=== PATIENT | male | born 1965 | race Caucasian/White ===

== ENCOUNTER 2018-03-17 10:41 | Emergency (ER) | payer MEDICARE, OTHER ==
[~2018-03-17] VITALS: Ht 177.8 cm; Wt 99.8 kg
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
--- OUTSIDE RECORDS SUMMARY | 2018-03-17 10:48 | XMS REPORT | Referral Summary ---
Author Author [facility] Organization [facility] Address Unknown Phone Unavailable Care Team Providers Care Risk Officer Name Role Phone Danish Aguilera PCP Encounter [facility] Date(s): 11/20/15 - 11/20/15 [facility] [address] [place] [address] Discharge Diagnosis: Left flank pain Discharge Diagnosis: MRSA infection Discharge Diagnosis: Lung nodule Discharge Disposition: 01-Home or Self Care Attending Physician: Danish Aguilera MD Admitting Physician: Danish Aguilera MD Vital Signs Most recent to 1 oldest [Reference Range]: Temperature Oral 36.7 degC [35.8-37.3 degC] (11/20/15 2:18 PM) Peripheral Pulse 92 bpm Rate [60-100 bpm] (11/20/15 2:18 PM) Blood Pressure 142/92 mmHg [90-140/60-90 mmHg] *HI* (11/20/15 2:18 PM) Problem List Condition Effective Dates Status [...] Care 5Abscess from Arm collected 11/03/15 11:18:00 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 6Wound, Superficial from Knee L collected 08/06/14 17:01:00 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 PREPARER Allergies, Adverse Reactions, Alerts Substance Reaction Severity Status Bactrim Rash Active fentaNYL1, 2 GI upset Active n/v Lipitor SORE JOINTS Active methadone Adverse Reaction Active GI upset 1ALLERGY ONLY TO FENTANYL PATCH 2fentanyl patches Medications Ambien 10 mg oral tablet 10 mg 1 tabs, Oral, Bedtime (once a day), as needed for sleep, # 30 tabs, 0 Refill(s) Start Date: 10/17/15 Stop Date: 11/16/15 Status: Ordered Ambien 10 mg oral tablet 1 tabs, Oral, Bedtime (once a day), as needed for sleep, # 30 tabs, 5 Refill(s) Start Date: 01/20/15 Stop Date: 07/19/15 Status: Ordered Chantix Starter Pack 0.5 mg-1 mg oral tablet 1 tabs, Oral, BID, as directed on package labeling, # 53 tabs, 0 Refill(s), Pharmacy: [facility] #[id number] Start Date: 03/24/15 Status: Ordered Chantix Starter Pack 0.5 mg-1 mg oral tablet 1 tabs, Oral, BID, as directed on package labeling, # 53 tabs, 0 Refill(s), Pharmacy: [facility] #[id number] Start Date: 06/13/15 Status: Ordered DULoxetine 60 mg oral delayed release capsule See Instructions, TAKE ONE CAPSULE BY MOUTH DAILY (DO NOT CRUSH OR CHEW) due for appt,pleae call to schedule, # 30 caps, 0 Refill(s), Pharmacy: [facility] #[id number], TAKE ONE CAPSULE BY MOUTH DAILY (DO NOT CRUSH OR CHEW); due for appt,pleae... Start Date: 11/11/15 Status: Ordered lisinopril 20 mg oral tablet mg tabs, Oral, Daily, 0 Refill(s) Start Date: 05/26/15 Status: Ordered One Touch Delica Lancets One Touch Delica Lancets, See Instructions, Use as directed to test blood sugar QD. Dx: 250.00, # 100 Each, 2 Refill(s), Pharmacy: [facility] #[id number], Use as directed to test blood sugar QD. Dx: 250.00 Start Date: 03/24/15 Status: Ordered One Touch Ultra 2 Meter One Touch Ultra 2 Meter, See Instructions, Use as directed to test blood sugar daily. Dx: 250.00, # 1 Each, 0 Refill(s), Pharmacy: [facility] #[id number], Use as directed to test blood sugar daily. Dx: 250.00 Start Date: 03/24/15 Status: Ordered One Touch Ultra Test Strips One Touch Ultra Test Strips, See Instructions, Use as directed to test blood sugar QD. Dx: 250.00, # 100 Each, 3 Refill(s), Pharmacy: [facility] # [id number], Use as directed to test blood sugar QD. Dx: 250.00 Start Date: 03/24/15 Status: Ordered Ultram 50 mg oral tablet 50 mg 1 tabs, Oral, q12hr, as needed for pain, # 30 tabs, 0 Refill(s), called to pharmacy (Rx) Start Date: 06/11/15 Stop Date: 06/11/16 Status: Ordered Results Chemistry Most recent to 1 oldest [Reference Range]: Sodium Lvl [135-144 139 mEq/L mEq/L] (11/20/15 2:41 PM) Potassium Lvl 4.3 mEq/L [3.5-5.2 mEq/L] (11/20/15 2:41 PM) Chloride [99-111 105 mEq/L mEq/L] (11/20/15 2:41 PM) CO2 [23-31 mEq/L] 28 mEq/L (11/20/15 2:41 PM) AGAP [3-20] 6 (11/20/15 2:41 PM) BUN [8-26 mg/dL] 6 mg/dL *LOW* (11/20/15 2:41 PM) Glucose Lvl [70-99 105 mg/dL mg/dL] *HI* (11/20/15 2:41 PM) Creatinine Lvl 0.92 mg/dL [0.72-1.25 mg/dL] (11/20/15 2:41 PM) eGFR [>60 mL/min] >60 mL/min 1 (11/20/15 2:41 PM) Calcium Lvl 9.6 mg/dL [8.9-10.5 mg/dL] (11/20/15 2:41 PM) 1Result Comment: Multiply eGFR results by 1.21 for race. Urinalysis Most recent to 1 oldest [Reference Range]: UA Color Yellow (11/20/15 2:40 PM) UA Appear Clear (11/20/15 2:40 PM) UA pH [5.0-8.0] 5.5 (11/20/15 2:40 PM) UA Leuk Est Negative [Negative] (11/20/15 2:40 PM) UA Nitrite Negative [Negative] (11/20/15 2:40 PM) UA Protein Negative [Negative] (11/20/15 2:40 PM) UA Glucose Negative [Negative] (11/20/15 2:40 PM) UA Ketones Negative [Negative] (11/20/15 2:40 PM) UA Urobilinogen 0.2 mg/dL [<=1.0 mg/dL] (11/20/15 2:40 PM) UA Bili [Negative] Negative (11/20/15 2:40 PM) UA Blood [Negative] Negative (11/20/15 2:40 PM) UA Spec Grav >=1.030 [1.003-1.030] (11/20/15 2:40 PM) Type Cl Catch (11/20/15 2:40 PM) Immunizations Vaccine Date Refusal Reason influenza virus vaccine, inactivated 09/05/14 Procedures Procedure [...] Burton C5/6 and C6/7 ACDF CPT Codes: 36507; 71481; 00335; 65852; 32653 ICD-9 Codes: 723.0; 723.1; 723.4 PO03/02/2015 2auto-populated from documented surgical case 3auto-populated from documented surgical case 4Left knee [place] [address] unicompartmental total knee medial side. 38144 Global end date 10-20-14 5LEFT 6LEFT KNEE X 2 SURG Social History Social History Type Response Smoking Status Current every day smoker; Tobacco use per day: 1 Pack Assessment and Plan Extracted from: Title: Office Visit Note Author: Danish Aguilera MD Date: 11/20/15 Assessment/Plan 1.Left flank pain this is unlike his typical MSK pain. will check BMP and uA Ordered: Basic Metabolic Panel Urinalysis with Culture if Indicated 2.MRSA infection this iis improved, he is chornic carrier 3.Lung nodule recheck CT in about a year. this is stable.
--- OUTSIDE RECORDS SUMMARY | 2018-03-17 10:48 | XMS REPORT | Referral Summary ---
Author Author [facility] Organization [facility] Address Unknown Phone Unavailable Care Team Providers Care Starting Gate Driver Name Role Phone Danish Aguilera PCP Encounter [facility] [id number] Date(s): 11/03/15 - 11/03/15 [facility] [address] [place] [address] [facility] Discharge Diagnosis: Skin abscess Discharge Disposition: 01-Home or Self Care Attending Physician: Provider, Immediate Care Attending Physician: Stuart Angel APRN Admitting Physician: Provider, Immediate Care Vital Signs Most recent to 1 oldest [Reference Range]: Temperature Oral 36.7 degC [35.8-37.3 degC] (11/03/15 8:48 AM) Peripheral Pulse 78 bpm Rate [60-100 bpm] (11/03/15 8:48 AM) Respiratory Rate 18 br/min [14-20 br/min] (11/03/15 8:48 AM) Blood Pressure 130/85 mmHg [90-140/60-90 mmHg] (11/03/15 8:48 AM) SpO2 95 % (11/03/15 8:48 AM) Problem List Condition Effective Dates Status Health [...] of left knee(Confirmed) Methicillin Active resistant Staphylococcus aureus(Confirmed)5 Migraines(Confirmed) Active Cervicalgia(Confirme Active d) Cervicalgia(Confirme Active d) cervical Active Radiculopathy(Confir med) KNEE JOINT REPLACED Active BY OTHER MEANS(Confirmed) Right hand middle Resolved finger(Confirmed) Sciatica Active (disorder)(Confirmed ) Sciatica(Confirmed) Active skin Resolved conditions(Confirmed ) spinal headache Resolved after lumbar surgery(Confirmed) cervical Spinal Active stenosis(Confirmed) Cervical stenosis of Active spine(Confirmed) Spinal stenosis in Active cervical region (disorder)(Confirmed ) Tobacco Active patient user(Confirmed) Type 2 diabetes [...] initiation of Knowledge Deficit Plan of Care 5Wound, Superficial from Knee L collected 08/06/14 17:01:00 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 Allergies, Adverse Reactions, Alerts Substance Reaction Severity [...] # 53 tabs, 0 Refill(s), Pharmacy: [facility] #[id number] Start Date: 03/24/15 Status: Ordered Chantix Starter Pack 0.5 mg-1 mg oral tablet 1 tabs, Oral, BID, as directed on package labeling, # 53 tabs, 0 Refill(s), Pharmacy: [facility] #[id number] Start Date: 06/13/15 Status: Ordered Cipro 500 mg oral tablet 500 mg 1 tabs, Oral, q12hr, X 7 days, # 14 tabs, 0 Refill(s), Pharmacy: [facility] #[id number], 1 tabs Oral q12hr,x7 days Start Date: 11/03/15 Stop Date: 11/10/15 Status: Ordered DULoxetine 60 mg oral delayed release capsule See Instructions, TAKE ONE CAPSULE BY MOUTH DAILY (DO NOT CRUSH OR CHEW) Due for follow in October, please call ot schedule, # 30 caps, 0 Refill(s), Pharmacy : [facility] #[id number], TAKE ONE CAPSULE BY MOUTH DAILY (DO NOT CRUSH OR CHEW); Due f... Start Date: 10/13/15 Status: Ordered lisinopril 20 mg oral tablet mg tabs, Oral, Daily, 0 Refill(s) Start Date: 05/26/15 Status: Ordered One Touch Delica Lancets One Touch Delica Lancets, See Instructions, Use as directed to test blood sugar QD. Dx: 250.00, # 100 Each, 2 Refill(s), Pharmacy: [facility] #[id number], Use as directed to test blood sugar QD. Dx: 250.00 Start Date: 03/24/15 Status: Ordered One Touch Ultra 2 Meter One Touch Ultra 2 Meter, See Instructions, Use as directed to test blood sugar daily. Dx: 250.00, # 1 Each, 0 Refill(s), Pharmacy: [facility] #[id number], Use as directed to test blood sugar daily. Dx: 250.00 Start Date: 03/24/15 Status: Ordered One Touch Ultra Test Strips One Touch Ultra Test Strips, See Instructions, Use as directed to test blood sugar QD. Dx: 250.00, # 100 Each, 3 Refill(s), Pharmacy: [facility] # [id number], Use as directed to test blood sugar QD. Dx: 250.00 Start Date: 03/24/15 Status: Ordered Ultram 50 mg oral tablet 50 mg 1 tabs, Oral, q12hr, as needed for pain, # 30 tabs, 0 Refill(s), called to pharmacy (Rx) Start Date: 06/11/15 Stop Date: 06/11/16 Status: Ordered Results No data available for this section Immunizations Vaccine Date Refusal Reason influenza virus [...] Burton C5/6 and C6/7 ACDF CPT Codes: 63320; 31678; 73090; 90960; 59757 ICD-9 Codes: 723.0; 723.1; 723.4 PO03/02/2015 2auto-populated from documented surgical case 3auto-populated from documented surgical case 4Left knee [place] [address] unicompartmental total knee medial side. [id number] Global end date 10-20-14 5LEFT 6LEFT KNEE X 2 SURG Social History Social History Type Response Smoking Status Current every day smoker; Tobacco use per day: 1 Pack Assessment and Plan Extracted from: Title: Office Visit Note Author: Stuart Angel APRN Date: 11/03/15 Assessment/Plan 1.Skin abscess Indication abscess, we cleansed the skin withiodine swabs (3), anesthetizedwith 4mL of 1 percent lidocainewithout epinephrine , technique: [We made a nicking incision in the skin] [ We used an 11-blade to incise the skin contiguous with the abscess cavity] [We advanced a hemostat into the loculated abscess cavity] Yield [ approximately1 mL] of fluid, This substantially decompressed the swelling, placed a clean dressing, The patient tolerated the procedure well, The patient's pain was decreased at the completion of the procedure, The patient was sent home in stable condition, We sent the material for culture, The patient will be on antibiotic medication for 7 more days, We will followup as noted in the Plan and Next Appointment. A sample was procured, will be sent off for culture and sensitivity. Patient has a history of MRSA, will be notified ifmedication needs change. Instructed patient on medication, use, common side effects, and administration. Discussed proper OTC medication, including [Tylenol or ibuprofen ], for symptomatic relief. Instructed patient if symptoms worsen or new symptoms arise to seek medical attention here or at the ER. Instructed patient if symptoms do not improve follow up with PCP in 2-3 days. Patient voiced understanding and agreed with treatment plan. Patient dismissed in stable condition. Ordered: Office Visit Level 3 Est [id number] Orders: ciprofloxacin, 500 mg 1 tabs, Oral, q12hr, X 7 days, # 14 tabs, 0 Refill(s), Pharmacy: [facility] #[id number], 1 tabs Oral q12hr,x7 days
--- OUTSIDE RECORDS SUMMARY | 2018-03-17 10:49 | XMS REPORT | Referral Summary ---
Author Author [facility], [facility] Organization [facility] Address Unknown Phone Unavailable Care Team Providers Care Tool Maintenance Worker Name Role Phone Danish Aguilera PCP Encounter VC Date(s): 06/13/15 - 06/13/15 [facility], [facility] Medicine [address] [place] [id number] Discharge Diagnosis: Smoking Discharge Diagnosis: Depression Discharge Diagnosis: Furuncle Discharge Disposition: 01-Home or Self Care Attending Physician: Danish Aguilera MD Admitting Physician: Danish Aguilera MD Vital Signs Most recent to 1 oldest [Reference Range]: Peripheral Pulse 71 bpm Rate [60-100 bpm] (06/13/15 11:12 AM) Blood Pressure 136/84 mmHg [90-140/60-90 mmHg] (06/13/15 11:12 AM) Problem List Condition Effective Dates Status [...] Care 5Abscess from Arm collected 11/03/15 11:18:00 LEAD CARGOMAN 6Wound, Superficial from Knee L collected 08/06/14 17:01:00 LEAD CARGOMAN Allergies, Adverse Reactions, Alerts Substance Reaction Severity Status Bactrim Rash Active fentaNYL1, 2 GI upset Active n/v Lipitor SORE JOINTS Active methadone Adverse Reaction Active GI upset 1ALLERGY ONLY TO FENTANYL PATCH 2fentanyl patches Medications Ambien 10 mg oral tablet 1 tabs, Oral, Bedtime (once a day), as needed for sleep, # 30 tabs, 5 Refill(s) Start Date: 01/20/15 Stop Date: 07/19/15 Status: Ordered Ambien 10 mg oral tablet 10 mg 1 tabs, Oral, Bedtime (once a day), as needed for sleep, # 30 tabs, 0 Refill(s), called to pharmacy (Rx) Start Date: 11/21/15 Stop Date: 12/21/15 Status: Ordered Chantix Starter Pack 0.5 mg-1 mg oral tablet 1 tabs, Oral, BID, as directed on package labeling, # 53 tabs, 0 Refill(s), Pharmacy: [facility] #[id number] Start Date: 03/24/15 Status: Ordered Chantix Starter Pack 0.5 mg-1 mg oral tablet 1 tabs, Oral, BID, as directed on package labeling, # 53 tabs, 0 Refill(s), Pharmacy: [facility] #[id number] Start Date: 06/13/15 Status: Ordered DULoxetine 60 mg oral delayed release capsule See Instructions, TAKE ONE CAPSULE BY MOUTH DAILY (DO NOT CRUSH OR CHEW), # 30 caps, eRx: [facility] #[id number], TAKE ONE CAPSULE BY MOUTH DAILY (DO NOT CRUSH OR CHEW) Start Date: 12/18/15 Status: Ordered lisinopril 20 mg oral tablet mg tabs, Oral, Daily, 0 Refill(s) Start Date: 05/26/15 Status: Ordered One Touch Delica Lancets One Touch Delica Lancets, See Instructions, Use as directed to test blood sugar QD. Dx: 250.00, # 100 Each, 2 Refill(s), Pharmacy: [facility] #[id number], Use as directed to test blood sugar QD. Dx: 250.00 Start Date: 03/24/15 Status: Ordered One Touch Ultra 2 Meter One Touch Ultra 2 Meter, See Instructions, Use as directed to test blood sugar daily. Dx: 250.00, # 1 Each, 0 Refill(s), Pharmacy: [facility] #[id number], Use as directed to test blood sugar daily. Dx: 250.00 Start Date: 03/24/15 Status: Ordered One Touch Ultra Test Strips One Touch Ultra Test Strips, See Instructions, Use as directed to test blood sugar QD. Dx: 250.00, # 100 Each, 3 Refill(s), Pharmacy: [facility] # [id number], Use as directed to test blood sugar [...] Burton C5/6 and C6/7 ACDF CPT Codes: 33194; 33354; 73626; 84320; 94657 ICD-9 Codes: 723.0; 723.1; 723.4 PO03/02/2015 2auto-populated from documented surgical case 3auto-populated from documented surgical case 4Left knee [place] [address] unicompartmental total knee medial side. [id number] Global end date 10-20-14 5LEFT 6LEFT KNEE X 2 SURG Social History Social History Type Response Smoking Status Current every day smoker; Tobacco use per day: 1 Pack Assessment and Plan Extracted from: Title: Office Visit Note Author: Danish Aguilera MD Date: 06/13/15 Assessment/Plan 1.Depression 15 minutes were spent with patient and over half the time was spent counselling patient and coordinating the care around his smoking and depression. Follow up in October after his CT scan. 2.Smoking I refilled chantix 3.Furuncle I sent out bactrim Orders: sulfamethoxazole-trimethoprim, 1 tabs, Oral, BID, X 10 days, # 20 tabs , 0 Refill(s), Pharmacy: [facility] #[id number] varenicline, 1 tabs, Oral, BID, as directed on package labeling, # 53 tabs, 0 Refill(s), [id number] CT Thorax w/ Contrast
--- OUTSIDE RECORDS SUMMARY | 2018-03-17 10:49 | XMS REPORT | Referral Summary ---
Author Author [facility], [facility] Organization [facility] Address Unknown Phone Unavailable Care Team Providers Care Slots Manager Name Role Phone Danish Aguilera PCP Encounter VC Date(s): 09/18/15 - 09/18/15 [facility], Family Medicine [address] [place] [id number] Discharge Diagnosis: Nasal abscess Discharge Diagnosis: Allergic drug reaction Discharge Disposition: 01-Home or Self Care Attending Physician: Danish Aguilera MD Vital Signs Most recent to 1 oldest [Reference Range]: Peripheral Pulse 98 bpm Rate [60-100 bpm] (09/18/15 10:36 AM) Blood Pressure 140/86 mmHg [90-140/60-90 mmHg] (09/18/15 10:36 AM) Problem List Condition Effective Dates Status [...] Superficial from Knee L collected 08/06/14 17:01:00 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 Allergies, Adverse Reactions, Alerts Substance Reaction Severity Status fentaNYL1, 2 GI upset Active n/v Lipitor [...] as needed for sleep, # 30 tabs, 2 Refill(s), called to pharmacy (Rx) Start Date: 07/21/15 Stop Date: 10/19/15 Status: Ordered Bactrim tabs, Oral, BID, 0 Refill(s) Start Date: 09/18/15 Status: Ordered Bactrim DS 800 mg-160 mg oral tablet 2 tabs, Oral, BID, for infection, X 7 days, # 28 tabs, 0 Refill(s) Start Date: 09/15/15 Stop Date: 09/22/15 Status: Ordered Chantix Starter Pack 0.5 mg-1 mg oral tablet 1 tabs, Oral, BID, as directed on package labeling, # 53 tabs, 0 Refill(s), Pharmacy: [facility] #[id number] Start Date: 03/24/15 Status: Ordered Chantix Starter Pack 0.5 mg-1 mg oral tablet 1 tabs, Oral, BID, as directed on package labeling, # 53 tabs, 0 Refill(s), Pharmacy: [facility] #[id number] Start Date: 06/13/15 Status: Ordered Cymbalta 60 mg oral delayed release capsule See Instructions, TAKE ONE CAPSULE BY MOUTH DAILY (DO NOT CRUSH OR CHEW), # 30 caps, eRx: [facility] #[id number], TAKE ONE CAPSULE BY MOUTH DAILY (DO NOT CRUSH OR CHEW) Start Date: 09/15/15 Status: Ordered lisinopril 20 mg oral tablet mg tabs, Oral, Daily, 0 Refill(s) Start Date: 05/26/15 Status: Ordered One Touch Delica Lancets One Touch Delica Lancets, See Instructions, Use as directed to test blood sugar QD. Dx: 250.00, # 100 Each, 2 Refill(s), Pharmacy: [facility] #[id number], Use as directed to test blood sugar QD. Dx: 250.00 Start Date: 03/24/15 Status: Ordered One Touch Ultra 2 Meter One Touch Ultra 2 Meter, See Instructions, Use as directed to test blood sugar daily. Dx: 250.00, # 1 Each, 0 Refill(s), Pharmacy: [facility] #[id number], Use as directed to test blood sugar daily. Dx: 250.00 Start Date: 03/24/15 Status: Ordered One Touch Ultra Test Strips One Touch Ultra Test Strips, See Instructions, Use as directed to test blood sugar QD. Dx: 250.00, # 100 Each, 3 Refill(s), Pharmacy: [facility] # [id number], Use as directed to test blood sugar [...] Burton C5/6 and C6/7 ACDF CPT Codes: 67776; 25948; 73760; 75115; 82142 ICD-9 Codes: 723.0; 723.1; 723.4 PO03/02/2015 2auto-populated from documented surgical case 3auto-populated from documented surgical case 4Left knee [place] [address] unicompartmental total knee medial side. [id number] Global end date 10-20-14 5LEFT 6LEFT KNEE X 2 SURG Social History Social History Type Response Smoking Status Current every day smoker; Tobacco use per day: 1 Pack Assessment and Plan Extracted from: Title: Office Visit Note Author: Danish Aguilera MD Date: 09/18/15 Assessment/Plan 1.Nasal abscess stop bactrim. skin reaction may be allergic reaction to bactrim. patient will call and let us know how he is doing in a week, then we willl addbactrim as allergy 2.Allergic drug reaction benadryl and clariitn for itch Snoring sleep consult, i encouraged him on goal of smoking cessation.
--- OUTSIDE RECORDS SUMMARY | 2018-03-17 10:49 | XMS REPORT | Referral Summary ---
Author Author [facility], [facility], [facility] Organization [facility], [facility], [facility] Address Unknown Phone Unavailable Care Team Providers Care Chemical Engineering Technologist Name Role Phone Danish Aguilera PCP Encounter VC Date(s): 07/23/15 - 07/23/15 [facility], [facility], Optometry [address] [place], [place] [address] Discharge Disposition: 01-Home or Self Care Attending Physician: George Christy OD Admitting Physician: George Christy OD Vital Signs No data available for this section Problem List Condition Effective Dates Status Health Status Informant Acute Active pain(Confirmed) Acute kidney Active patient failure(Confirmed)1 Anxiety(Confirmed) Active At risk for Active infection(Confirmed) 2 back pain(Confirmed) Resolved Cervical Active radiculitis(Confirme d) Chicken Active pox(Confirmed) Chronic low back Active pain(Confirmed) Peripheral Active neuropathy(Confirmed ) DJD Medial 2013 Active Meniscus(Confirmed) Essential Active hypertension (disorder)(Confirmed ) [...] Care 5Abscess from Arm collected 11/03/15 11:18:00 TRAINING FACILITATOR 6Wound, Superficial from Knee L collected 08/06/14 17:01:00 TRAINING FACILITATOR Allergies, Adverse Reactions, Alerts Substance Reaction Severity Status Bactrim Rash Active fentaNYL1, 2 GI upset Active n/v Lipitor SORE JOINTS Active methadone Adverse Reaction Active GI upset 1ALLERGY ONLY TO FENTANYL PATCH 2fentanyl patches Medications Advair Diskus 500 mcg-50 mcg inhalation powder 1 puffs, Inhalation, BID, # 60 Each, 5 Refill(s), Pharmacy: [facility] # [id number] Start Date: 01/13/16 Status: Ordered albuterol 90 mcg/inh inhalation powder 2 puffs, Inhalation, q4hr, # 1 Each, 5 Refill(s), Pharmacy: [facility] # [id number] Start Date: 01/13/16 Status: Ordered Ambien 10 mg oral tablet 1 tabs, Oral, Bedtime (once a day), as needed for sleep, # 30 tabs, 5 Refill(s) Start Date: 01/20/15 Stop Date: 07/19/15 Status: Ordered Ambien 10 mg oral tablet 10 mg 1 tabs, Oral, Bedtime (once a day), as needed for sleep, # 30 tabs, 0 Refill(s) Start Date: 01/26/16 Stop Date: 02/25/16 Status: Ordered Chantix Starter Pack 0.5 mg-1 mg oral tablet 1 tabs, Oral, BID, as directed on package labeling, # 53 tabs, 0 Refill(s), Pharmacy: [facility] #[id number] Start Date: 03/24/15 Status: Ordered Chantix Starter Pack 0.5 mg-1 mg oral tablet 1 tabs, Oral, BID, as directed on package labeling, # 53 tabs, 0 Refill(s), Pharmacy: [facility] #[id number] Start Date: 06/13/15 Status: Ordered DULoxetine 60 mg oral delayed release capsule See Instructions, TAKE ONE CAPSULE BY MOUTH DAILY (DO NOT CRUSH OR CHEW), # 30 caps, eRx: [facility] #[id number], TAKE ONE CAPSULE BY MOUTH DAILY (DO NOT CRUSH OR CHEW) Start Date: 01/19/16 Status: Ordered lisinopril 20 mg oral tablet mg tabs, Oral, Daily, 0 Refill(s) Start Date: 05/26/15 Status: Ordered One Touch Delica Lancets One Touch Delica Lancets, See Instructions, Use as directed to test blood sugar QD. Dx: 250.00, # 100 Each, 2 Refill(s), Pharmacy: [facility] #[id number], Use as directed to test blood sugar QD. Dx: 250.00 Start Date: 03/24/15 Status: Ordered One Touch Ultra 2 Meter One Touch Ultra 2 Meter, See Instructions, Use as directed to test blood sugar daily. Dx: 250.00, # 1 Each, 0 Refill(s), Pharmacy: [facility] #[id number], Use as directed to test blood sugar daily. Dx: 250.00 Start Date: 03/24/15 Status: Ordered One Touch Ultra Test Strips One Touch Ultra Test Strips, See Instructions, Use as directed to test blood sugar QD. Dx: 250.00, # 100 Each, 3 Refill(s), Pharmacy: [facility] # [id number], Use as directed to test blood sugar QD. Dx: 250.00 Start Date: 03/24/15 Status: Ordered predniSONE 20 mg oral tablet See Instructions, 2 tabs daily for 5 days then one tabe daily for 5 days., # 15 tabs, 0 Refill(s), Pharmacy: [facility] #[id number], 2 tabs daily for 5 days then one tabe daily for 5 days. Start Date: 01/13/16 Status: Ordered Spiriva Respimat 1.25 mcg/inh inhalation aerosol 2 puffs, Inhalation, Daily, # 1 Each, 11 Refill(s), Pharmacy: [facility] # [id number], 2 puffs Inhalation Daily Start Date: 01/13/16 [...] Burton C5/6 and C6/7 ACDF CPT Codes: 90536; 89544; 77790; 18578; 87179 ICD-9 Codes: 723.0; 723.1; 723.4 PO03/02/2015 2auto-populated from documented surgical case 3auto-populated from documented surgical case 4Left knee [place] [address] unicompartmental total knee medial side. [id number] Global end date 10-20-14 5LEFT 6LEFT KNEE X 2 SURG Social History Social History Type Response Smoking Status Current every day smoker; Tobacco use per day: 1 Pack Assessment and Plan No data available for this section
--- OUTSIDE RECORDS SUMMARY | 2018-03-17 10:49 | XMS REPORT | Referral Summary ---
Author Author [facility] Organization [facility] Address Unknown Phone Unavailable Care Team Providers Care Accounting Coordinator Name Role Phone Danish Aguilera PCP Encounter VC Date(s): 03/24/15 - 03/24/15 [facility], [facility] Medicine [address] [place] [id number] Discharge Diagnosis: Leg cramps Discharge Diagnosis: Medication management Discharge Diagnosis: Prostate cancer screening Discharge Diagnosis: Anxiety Discharge Diagnosis: Smoking Discharge Diagnosis: Cervical radiculopathy Discharge Diagnosis: Lung nodule Discharge Diagnosis: Screening cholesterol level Discharge Diagnosis: Diabetes mellitus Discharge Diagnosis: Hypertension Discharge Disposition: 01-Home or Self Care Attending Physician: Danish Aguilera MD Admitting Physician: Danish Aguilera MD Vital Signs Most recent to 1 oldest [Reference Range]: Peripheral Pulse 110 bpm Rate [60-100 bpm] *HI* (03/24/15 1:13 PM) Blood Pressure 142/86 mmHg [90-140/60-90 mmHg] *HI* (03/24/15 1:13 PM) Problem List Condition Effective Dates Status [...] Superficial from Knee L collected 08/06/14 17: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 Allergies, Adverse Reactions, Alerts Substance Reaction Severity [...] 0 Refill(s) Start Date: 09/18/15 Status: Ordered Chantix Starter Pack 0.5 mg-1 mg oral tablet 1 tabs, Oral, BID, as directed on package labeling, # 53 tabs, 0 Refill(s), Pharmacy: [facility] #[id number] Start Date: 03/24/15 Status: Ordered Chantix Starter Pack 0.5 mg-1 mg oral tablet 1 tabs, Oral, BID, as directed on package labeling, # 53 tabs, 0 Refill(s), Pharmacy: [facility] #[id number] Start Date: 06/13/15 Status: Ordered Cymbalta 60 mg oral delayed release capsule See Instructions, TAKE ONE CAPSULE BY MOUTH DAILY (DO NOT CRUSH OR CHEW), # 30 caps, eRx: [facility] #[id number], TAKE ONE CAPSULE BY MOUTH DAILY (DO NOT CRUSH OR CHEW) Start Date: 09/15/15 Status: Ordered lisinopril 20 mg oral tablet mg tabs, Oral, Daily, 0 Refill(s) Start Date: 05/26/15 Status: Ordered One Touch Delica Lancets One Touch Delica Lancets, See Instructions, Use as directed to test blood sugar QD. Dx: 250.00, # 100 Each, 2 Refill(s), Pharmacy: [facility] #[id number], Use as directed to test blood sugar QD. Dx: 250.00 Start Date: 03/24/15 Status: Ordered One Touch Ultra 2 Meter One Touch Ultra 2 Meter, See Instructions, Use as directed to test blood sugar daily. Dx: 250.00, # 1 Each, 0 Refill(s), Pharmacy: [facility] #[id number], Use as directed to test blood sugar daily. Dx: 250.00 Start Date: 03/24/15 Status: Ordered One Touch Ultra Test Strips One Touch Ultra Test Strips, See Instructions, Use as directed to test blood sugar QD. Dx: 250.00, # 100 Each, 3 Refill(s), Pharmacy: [facility] # [id number], Use as directed to test blood sugar QD. Dx: 250.00 Start Date: 03/24/15 Status: Ordered Ultram 50 mg oral tablet 50 mg 1 tabs, Oral, q12hr, as needed for pain, # 30 tabs, 0 Refill(s), called to pharmacy (Rx) Start Date: 06/11/15 Stop Date: 06/11/16 Status: Ordered Results Hematology Most recent to 1 oldest [Reference Range]: WBC [4.8-10.8 7.4 10*3/uL 10*3/uL] (03/24/15 1:52 PM) RBC [4.60-6.20 4.92 10*6/uL 10*6/uL] (03/24/15 1:52 PM) Hgb [14.0-18.0 15.5 gm/dL gm/dL] (03/24/15 1:52 PM) Hct [42.0-52.0 %] 45.7 % (03/24/15 1:52 PM) MCV [82.0-99.0 fL] 92.9 fL (03/24/15 1:52 PM) MCH [27.0-32.0 pg] 31.5 pg (03/24/15 1:52 PM) MCHC [32.0-36.0 33.9 gm/dL gm/dL] (03/24/15 1:52 PM) RDW [11.5-14.5 %] 12.9 % (03/24/15 1:52 PM) Platelet [150-400 245 10*3/uL 10*3/uL] (03/24/15 1:52 PM) MPV [8.8-14.8 fL] 11.3 fL (03/24/15 1:52 PM) Immature 0.3 % Granulocytes (03/24/15 1:52 PM) [0.0-1.0 %] Neutrophils [51-75 61 % %] (03/24/15 1:52 PM) Lymphocytes [20-46 25 % %] (03/24/15 1:52 PM) Monocytes [4-11 %] 12 % *HI* (03/24/15 1:52 PM) Eosinophils [0-4 %] 2 % (03/24/15 1:52 PM) Basophils [0-2 %] 0 % (03/24/15 1:52 PM) Neutro Absolute 4.48 10*3 [1.90-7.00 10*3] (03/24/15 1:52 PM) Lymph Absolute 1.88 10*3 [0.80-3.30 10*3] (03/24/15 1:52 PM) [place] Absolute 0.89 10*3 [0.30-1.00 10*3] (03/24/15 1:52 PM) Eos Absolute 0.11 10*3 [0.00-0.50 10*3] (03/24/15 1:52 PM) Baso Absolute 0.02 10*3 [0.00-0.20 10*3] (03/24/15 1:52 PM) Chemistry Most recent to 1 oldest [Reference Range]: Sodium Lvl [135-144 134 mEq/L mEq/L] *LOW* (03/24/15 1:52 PM) Potassium Lvl 4.6 mEq/L [3.5-5.2 mEq/L] (03/24/15 1:52 PM) Chloride [99-111 96 mEq/L mEq/L] *LOW* (03/24/15 1:52 PM) CO2 [23-31 mEq/L] 29 mEq/L (03/24/15 1:52 PM) AGAP [3-20] 9 (03/24/15 1:52 PM) BUN [8-26 mg/dL] 10 mg/dL (03/24/15 1:52 PM) Glucose Lvl [70-99 112 mg/dL mg/dL] *HI* (03/24/15 1:52 PM) Creatinine Lvl 1.10 mg/dL [0.72-1.25 mg/dL] (03/24/15 1:52 PM) eGFR [>60 mL/min] >60 mL/min 1 (03/24/15 1:52 PM) Calcium Lvl 10.2 mg/dL [8.9-10.5 mg/dL] (03/24/15 1:52 PM) Albumin Lvl [3.5-5.0 4.9 gm/dL gm/dL] (03/24/15 1:52 PM) Total Protein 8.6 gm/dL [6.4-8.3 gm/dL] *HI* (03/24/15 1:52 PM) Globulin [1.8-4.0 3.7 gm/dL gm/dL] (03/24/15 1:52 PM) ALT [0-55 U/L] 36 U/L (03/24/15 1:52 PM) AST [5-34 U/L] 40 U/L *HI* (03/24/15 1:52 PM) Alk Phos [40-150 133 U/L U/L] (03/24/15 1:52 PM) Bili Total [0.2-1.2 0.7 mg/dL mg/dL] (03/24/15 1:52 PM) Magnesium Lvl 2.4 mg/dL [1.6-2.6 mg/dL] (03/24/15 1:52 PM) PSA (wihout Reflex 0.5 ng/mL 2 Free) [0.0-3.5 (03/24/15 1:52 PM) ng/mL] Hgb A1c [4.1-5.6 %] 5.7 % *HI* (03/24/15 1:52 PM) eAvg Glucose 116.9 mg/dL (03/24/15 1:52 PM) 1Result Comment: Multiply eGFR results by 1.21 for race. 2Result Comment: AUA PSA Best Practice Guidelines: Age-Adjusted PSA Values by Ethnic Group Age Range Asians - Caucasians Americans 40-49 0-2.0 0-2.0 0-2.5 50-59 0-3.0 0-4.0 0-3.5 60-69 0-4.0 0-4.5 0-4.5 70-79 0-5.0 0-5.5 0-6.5 Urinalysis Most recent to 1 oldest [Reference Range]: UA Color Yellow (03/24/15 2:05 PM) UA Appear Clear (03/24/15 2:05 PM) UA pH [5.0-8.0] 6.0 (03/24/15 2:05 PM) UA Leuk Est Negative [Negative] (03/24/15 2:05 PM) UA Nitrite Negative [Negative] (03/24/15 2:05 PM) UA Protein Trace [Negative] *ABN* (03/24/15 2:05 PM) UA Glucose Negative [Negative] (03/24/15 2:05 PM) UA Ketones Negative [Negative] (03/24/15 2:05 PM) UA Urobilinogen 0.2 mg/dL (03/24/15 2:05 PM) UA Bili [Negative] Negative (03/24/15 2:05 PM) UA Blood Negative (03/24/15 2:05 PM) UA Spec Grav 1.015 [1.003-1.030] (03/24/15 2:05 PM) Type Cl Catch (03/24/15 2:05 PM) Immunizations Vaccine Date Refusal Reason influenza [...] Burton C5/6 and C6/7 ACDF CPT Codes: 43271; 51399; 30734; 38194; 25385 ICD-9 Codes: 723.0; 723.1; 723.4 PO03/02/2015 2auto-populated from documented surgical case 3auto-populated from documented surgical case 4Left knee [place] [address] unicompartmental total knee medial side. [id number] Global end date 10-20-14 5LEFT 6LEFT KNEE X 2 SURG Social History Social History Type Response Smoking Status Current every day smoker; Tobacco use per day: 1 Pack Assessment and Plan Extracted from: Title: Office Visit Note Author: Danish Aguilera MD Date: 03/24/15 Assessment/Plan 1.Leg cramps check potassium and magnesium levels. Follow up in 3-6 months unless labs indicate otherwise. Ordered: Magnesium Level 2.Smoking I will start on chantix, we can do continuation pack if requested. Ordered: varenicline, 1 tabs, Oral, BID, as directed on package labeling, # 53 tabs, 0 Refill(s), Pharmacy: [facility] #[id number] 3.Lung nodule reCT scan in October Ordered: CT Thorax w/ Contrast 4.Screening cholesterol level Ordered: Lipid Panel 5.Diabetes mellitus check A1c Ordered: Hemoglobin A1c 6.Medication management Ordered: CBC w/ Differential Comprehensive Metabolic Panel 7.Prostate cancer screening Ordered: Prostate Specific Antigen 8.Hypertension continue BP meds Ordered: Urinalysis with Culture if Indicated 9.Anxiety Continue cymbalta, 10.Cervical radiculopathy continue management per Dr Mc.
--- OUTSIDE RECORDS SUMMARY | 2018-03-17 10:49 | XMS REPORT | Referral Summary ---
Author Organization Unknown Address Unknown Phone Unavailable Care Team Providers Care Vp Business Development Name Role Phone Danish Aguilera PCP Encounter VC Date(s): 01/21/15 - 01/21/15 [facility] [address], [place] [address] Discharge Diagnosis: Orthopedic aftercare Discharge Disposition: Home or Self Care Attending Physician: Yaw Manrique MD Admitting Physician: Yaw Manrique MD Vital Signs No data available for this [...] post left Active partial knee replacement(Confirme d) High Active cholesterol(Confirme d) Hyperlipidemia(Confi Active rmed) [...] stenosis in Active cervical region (disorder)(Confirmed ) Type 2 diabetes Active mellitus(Confirmed) varciella Resolved [...] Superficial from Knee L collected 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 Allergies, Adverse Reactions, Alerts Substance Reaction Severity Status fentaNYL1, 2 GI upset Active n/v Lipitor SORE JOINTS Active methadone Adverse Reaction Active GI upset 1ALLERGY ONLY TO FENTANYL PATCH 2fentanyl patches Medications Ambien 10 mg oral tablet 1 tabs, Oral, Bedtime (once a day), as needed for sleep, # 30 tabs, 5 Refill(s) Start Date: 01/20/15 Stop Date: 07/19/15 Status: Ordered Benicar HCT 20 mg-12.5 mg oral tablet 1 tabs, Oral, Daily, # 30 tabs, 5 Refill(s), Pharmacy: [facility] #[id number] Start Date: 01/20/15 Status: Ordered Cymbalta 60 mg oral delayed release capsule 1 caps, Oral, Daily, do not crush or chew, # 30 caps, 5 Refill(s), Pharmacy: [facility] #[id number], 1 caps Oral Daily,Instr:do not crush or chew Special Instructions: do not crush or chew Start Date: 01/20/15 Status: Ordered Percocet 7.5/325 oral tablet See Instructions, Pain Moderate (4-6), 2 tabs Oral Q6 hours not to exceed 8 tablets/day *DO NOT FILL UNTIL 01/19/15*, # 140 tabs, 0 Refill(s) Special Instructions: 2 tabs Oral Q6 hours not to exceed 8 tablets/day *DO NOT FILL UNTIL 01/19/15* Start Date: 01/16/15 Stop Date: 01/17/16 Status: Ordered Results No data available for this section Immunizations Vaccine Date Refusal Reason influenza virus vaccine, inactivated 09/05/14 Procedures Procedure Date Related Diagnosis Body Site C5/6; C6/7 Anterior Cervical 12/04/14 Decompression/Fusion1 Fusion Spine Cervical Anterior and Disce2 12/04/14 Arthroplasty Knee Unicompartmental (Left)3 07/22/14 Arthroplasty of knee, condyle and plateau, 07/22/14 medial compartment4 Excision of meniscus of knee w/joint 2013 debridement5, 6 BACK SURG X 2 Right hand middle finger 1J. MD Burton C5/6 and C6/7 ACDF CPT Codes: 95833; 59708; 00908; 64592; 83033 ICD-9 Codes: 723.0; 723.1; 723.4 PO03/02/2015 2auto-populated from documented surgical case 3auto-populated from documented surgical case 4Left knee Melvin PKR unicompartmental total knee medial side. 21788 Global end date 10-20-14 5LEFT 6LEFT KNEE X 2 SURG Social History Social History Type Response Smoking Status Current every day smoker; Type: Cigarettes; Tobacco use per day: 1 Pack; Number of years: 20 Assessment and Plan Extracted from: Title: Office Visit Note Author: Yaw Manrique Date: 01/21/15 Assessment/Plan Orthopedic aftercare Patient overall doing very well. Sounds like he is only wearing the [place] J when out and about versus 23 hours a day. We discussed that I am happy that he is doing very well, but he is not in the clear yet. I applauded his decrease in smoking from 2 packs a day to one pack a day. With a 2 level fusion and his smoking history, probably 30 percent chance one of the levels doesn't heal. About 50 percent of those patient's become symptomatic. We discussed restrictions and not taking anti- inflammatory medications. He is taking approximately 6 Percocet a day and he can occasionally take up to 3-4 Tylenol per day for breakthrough pain, not to exceed 4 g of Tylenol. I will see him back in 6 weeks. We need flexion/ extension radiographs at follow-up Ordered: Postoperative Est 16363 Return to Clinic Referrals to Other Providers Referred by: Yaw Manrique MD
--- OUTSIDE RECORDS SUMMARY | 2018-03-17 10:50 | XMS REPORT | Referral Summary ---
Author Organization Unknown Address Unknown Phone Unavailable Care Team Providers Care Play Reader Name Role Phone Danish Aguilera PCP Encounter VC Date(s): 01/20/15 - 01/20/15 [facility], [facility] , [facility] Medicine [address], [place] [address] Discharge Diagnosis: Essential hypertension Discharge Diagnosis: Anxiety Discharge Diagnosis: Insomnia Discharge Diagnosis: Radiculopathy Discharge Disposition: Home or Self Care Attending Physician: Danish Aguilera MD Admitting Physician: Danish Aguilera MD Vital Signs Most recent to 1 oldest [Reference Range]: Peripheral Pulse 78 bpm Rate [60-100 bpm] (01/20/15 8:12 AM) Blood Pressure 130/84 mmHg [90-140/60-90 mmHg] (01/20/15 8:12 AM) Problem List Condition Effective Dates Status Health Status Informant Acute Active pain(Confirmed) Acute kidney Active patient failure(Confirmed)1 Anxiety(Confirmed) Active At risk for Active infection(Confirmed) 2 back pain(Confirmed) Resolved Cervical Active radiculitis(Confirme d) Chicken Active pox(Confirmed) Chronic low back Active pain(Confirmed) Peripheral Active neuropathy(Confirmed ) DJD Medial 2014 Active Meniscus(Confirmed) Essential Active hypertension (disorder)(Confirmed ) Orthopedic Active aftercare(Confirmed) Status post left Active [...] Superficial from Knee L collected 08/06/14 17:01:00 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 SINGER Allergies, Adverse Reactions, Alerts Substance Reaction Severity [...] Daily, # 30 tabs, 5 Refill(s), Pharmacy: [facility] #[id number] Start Date: 01/20/15 Status: Ordered Cymbalta 60 mg oral delayed release capsule 1 caps, Oral, Daily, do not crush or chew, # 30 caps, 5 Refill(s), Pharmacy: [facility] #[id number], 1 caps Oral Daily,Instr:do not crush or [...] Burton C5/6 and C6/7 ACDF CPT Codes: 87234; 93003; 35435; 89326; 60633 ICD-9 Codes: 723.0; 723.1; 723.4 PO03/02/2015 2auto-populated from documented surgical case 3auto-populated from documented surgical case 4Left knee Melvin PKR unicompartmental total knee medial side. 07801 Global end date 10-20-14 5LEFT 6LEFT KNEE X 2 SURG Social History Social History Type Response Smoking Status Current every day smoker; Type: Cigarettes; Tobacco use per day: 1 Pack; Number of years: 20 Assessment and Plan Extracted from: Title: Office Visit Note Author: Danish Aguilera MD Date: 01/20/15 Assessment/Plan 1.Insomnia refilll ambien Anxiety continue cymbalta Essential hypertension continue BP med, well controolled Radiculopathy referrral sent in to [facility] Orders: DULoxetine, 1 caps, Oral, Daily, do not crush or chew, # 30 caps, 5 Refill(s), Pharmacy: [facility] #[id number], 1 caps Oral Daily,Instr:do not crush or chew olmesartan-hydrochlorothiazide, 1 tabs, Oral, Daily, # 30 tabs, 5 Refill(s), Pharmacy: [facility] #[id number] zolpidem, 1 tabs, Oral, Bedtime (once a day), as needed for sleep, # 30 tabs, 5 Refill(s)
--- OUTSIDE RECORDS SUMMARY | 2018-03-17 10:50 | XMS REPORT | Referral Summary ---
Author Author [facility], [employer] [facility] Organization [facility]ат[facility], [facility] Address Unknown Phone Unavailable Care Team Providers Care Playroom Attendant Name Role Phone Danish Aguilera PCP Encounter VC Date(s): 07/22/15 - 07/22/15 [facility], [employer] [facility], [facility] [address], [place] [address] Discharge Diagnosis: Dry eye syndrome of bilateral lacrimal glands Discharge Diagnosis: Diabetes mellitus Discharge Diagnosis: Presbyopia Discharge Disposition: 01-Home or Self Care Attending [...] Superficial from Knee L collected 08/06/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 #[id number] Start Date: 03/24/15 Status: Ordered Chantix Starter Pack 0.5 mg-1 mg oral tablet 1 tabs, Oral, BID, as directed on package labeling, # 53 tabs, 0 Refill(s), Pharmacy: [facility] #[id number] Start Date: 06/13/15 Status: Ordered Cymbalta 60 mg oral delayed release capsule 1 caps, Oral, Daily, do not crush or chew, # 30 caps, 5 Refill(s), Pharmacy: [facility] #[id number], 1 caps Oral Daily,Instr:do not crush or chew Start Date: 01/20/15 Status: Ordered lisinopril 20 mg oral tablet mg tabs, Oral, Daily, 0 Refill(s) Start Date: 05/26/15 Status: Ordered One Touch Delica Lancets One Touch Delica Lancets, See Instructions, Use as directed to test blood sugar QD. Dx: 250.00, # 100 Each, 2 Refill(s), Pharmacy: [facility] #[id number], Use as directed to test blood sugar QD. Dx: 250.00 Start Date: 03/24/15 Status: Ordered One Touch Ultra 2 Meter One Touch Ultra 2 Meter, See Instructions, Use as directed to test blood sugar daily. Dx: 250.00, # 1 Each, 0 Refill(s), Pharmacy: [facility] #[id number], Use as directed to test blood sugar daily. Dx: 250.00 Start Date: 03/24/15 Status: Ordered One Touch Ultra Test Strips One Touch Ultra Test Strips, See Instructions, Use as directed to test blood sugar QD. Dx: 250.00, # 100 Each, 3 Refill(s), Pharmacy: [facility] # [id number], Use as directed to test blood sugar [...] compartment4 Excision of meniscus of knee w/joint 2014 debridement5, 6 BACK SURG X 2 Right hand middle finger 1J. MD Burton C5/6 and C6/7 ACDF CPT Codes: 86392; 24436; 58457; 76443; 99070 ICD-9 Codes: 723.0; 723.1; 723.4 PO03/02/2015 2auto-populated from documented surgical case 3auto-populated from documented surgical case 4Left knee Melvin PKR unicompartmental total knee medial side. 09107 Global end date 10-20-14 5LEFT 6LEFT KNEE X 2 SURG Social History Social History Type Response Smoking Status Current every day smoker Assessment and Plan Extracted from: Title: Ambulatory Patient Education Author: George Christy OD Date: Ophthalmology Presbyopia Presbyopia is when the ability to focus on close objects gets harder or is lost due to age. The ability to focus from near to far is called accommodation. Loss of accommodation is a normal aging process and not a disease. It usually begins when people approach their 40s. It continues for several decades until the eye can not focus anymore. Presbyopia is one of the reasons why people need bifocals and reading glasses when they get older. CAUSES Aging. Some medical conditions which cause problems seeing up close. These include: High or low blood sugar. . Weakness of the eye muscles required to bring the eyes in while looking nearby (convergence). Certain drugs and medicines (muscle relaxants, anti-depressants, ant-anxiety agents etc.) SYMPTOMS A hard time reading or seeing objects up close. Achy feeling in the eyes while reading. Headaches when reading or focusing up close. Eye strain for activities that need focusing up close. DIAGNOSIS The diagnosis of this problem is easily made on exam by your nephrology nurse or meat manager. You should have your eyes checked regularly throughout your life at yearly intervals. TREATMENT Presbyopia is treated with glasses or contact lenses. Ophthalmologists can use painless laser treatments to change the shape of the cornea (the clear covering at the front of the eye). This will not help with close-up vision after a certain age unless the procedure is planned to give only one eye close vision. This should be discussed with the meat manager before having surgery or a laser treatment. These types of approaches may affect the way the eyes work together. Document Released: 08/12/2005 Document Revised: 02/03/2015 Document Reviewed: ExitCare Patient Information 2015 [employer]. This information is not intended to replace advice given to you by your health care provider. Make sure you discuss any questions you have with your health care provider. No follow up information was provided. Extracted from: Title: Eye Exam am Author: George Christy OD Date: 07/22/15 Impression and Plan Diagnosis Presbyopia (ZUE58-CF H52.4, Discharge, Medical). Diabetes mellitus (GKP98-TM E11.9, Discharge, Medical). Dry eye syndrome of bilateral lacrimal glands (UTR64-GW H04.123, Discharge, Medical). Plan: Patient education on glycemic level effect on the retinal blood vessels and the effect on the eye in general. , Tears PRN. , Spectacle prescription. . Patient Instructions: Presbyopia, 1 year. Prescription: Ophthalmology Rx ([facility]) No qualifying data available.
--- OUTSIDE RECORDS SUMMARY | 2018-03-17 10:50 | XMS REPORT | Referral Summary ---
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 #[id number] Start Date: 03/24/15 Status: Ordered Chantix Starter Pack 0.5 mg-1 mg oral tablet 1 tabs, Oral, BID, as directed on package labeling, # 53 tabs, 0 Refill(s), Pharmacy: [facility] #[id number] Start Date: 06/13/15 Status: Ordered Cymbalta 60 mg oral delayed release capsule See Instructions, TAKE ONE CAPSULE BY MOUTH DAILY (DO NOT CRUSH OR CHEW), # 30 caps, eRx: [facility] #[id number], TAKE ONE CAPSULE BY MOUTH DAILY (DO NOT CRUSH OR CHEW) Start Date: 09/15/15 Status: Ordered lisinopril 20 mg oral tablet mg tabs, Oral, Daily, 0 Refill(s) Start Date: 05/26/15 Status: Ordered One Touch Delica Lancets One Touch Delica Lancets, See Instructions, Use as directed to test blood sugar QD. Dx: 250.00, # 100 Each, 2 Refill(s), Pharmacy: [facility] #[id number], Use as directed to test blood sugar QD. Dx: 250.00 Start Date: 03/24/15 Status: Ordered One Touch Ultra 2 Meter One Touch Ultra 2 Meter, See Instructions, Use as directed to test blood sugar daily. Dx: 250.00, # 1 Each, 0 Refill(s), Pharmacy: [facility] #[id number], Use as directed to test blood sugar daily. Dx: 250.00 Start Date: 03/24/15 Status: Ordered One Touch Ultra Test Strips One Touch Ultra Test Strips, See Instructions, Use as directed to test blood sugar QD. Dx: 250.00, # 100 Each, 3 Refill(s), Pharmacy: [facility] # [id number], Use as directed to test blood sugar [...] 1.88 10*3 [0.80-3.30 10*3] (03/24/15 1:52 PM) [place] Absolute 0.89 10*3 [0.30-1.00 10*3] (03/24/15 1:52 [...] Burton C5/6 and C6/7 ACDF CPT Codes: 00570; 49911; 10167; 34977; 33908 ICD-9 Codes: 723.0; 723.1; 723.4 PO03/02/2015 2auto-populated from documented surgical case 3auto-populated from documented surgical case 4Left knee [place] PKR unicompartmental total knee medial side. 68688 Global end date 10-20-14 5LEFT 6LEFT KNEE [...] labeling, # 53 tabs, 0 Refill(s), Pharmacy: [facility] #[id number] 3.Lung nodule reCT scan in October Ordered: [...]
--- OUTSIDE RECORDS SUMMARY | 2018-03-17 10:51 | XMS REPORT | Referral Summary ---
Author Author [facility] Organization [facility] Address Unknown Phone Unavailable Care Team Providers Care Cost Recovery Technician Name Role Phone Danish Aguilera PCP Encounter VC Date(s): 04/07/17 - 04/07/17 [facility] [address] [place] [id number] Discharge Diagnosis: Insomnia Discharge Diagnosis: Thania-rectal abscess Discharge Disposition: -Home or Self Care Attending Physician: Danish Aguilera MD Admitting Physician: Danish Aguilera MD Vital Signs Most recent to 1 oldest [Reference Range]: Peripheral Pulse 99 bpm Rate [60-100 bpm] (04/07/17 3:42 PM) Blood Pressure 130/80 mmHg [90-140/60-90 mmHg] (04/07/17 3:42 PM) SpO2 98 % (04/07/17 3:42 PM) Problem List Condition Effective Dates Status [...] Care 5Abscess from Arm collected 11/03/15 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:00 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 6Wound, Superficial from Knee L collected 08/06/14 17:01:00 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 Allergies, Adverse Reactions, Alerts Substance Reaction Severity Status Bactrim Rash Active fentaNYL1, 2 GI upset Active n/v Lipitor SORE JOINTS Active methadone Adverse Reaction Active GI upset 1ALLERGY ONLY TO FENTANYL PATCH 2fentanyl patches Medications Ambien 10 mg oral tablet 10 mg 1 tabs, Oral, Bedtime (once a day), as needed for sleep, # 30 tabs, 11 Refill(s) Start Date: 04/07/17 Stop Date: 04/02/18 Status: Ordered Augmentin 875 mg-125 mg oral tablet 1 tabs, Oral, q12hr, X 10 days, # 20 tabs, 0 Refill(s), Pharmacy: [facility] #[id number] Start Date: 04/01/17 Stop Date: 04/11/17 Status: Ordered Chantix Starter Pack 0.5 mg-1 mg oral tablet 1 tabs, Oral, BID, as directed on package labeling, # 53 tabs, 0 Refill(s), Pharmacy: [facility] #[id number] Start Date: 06/13/15 Status: Ordered One Touch Delica Lancets One Touch Delica Lancets, See Instructions, Use as directed to test blood sugar QD. Dx: 250.00, # 100 Each, 0 Refill(s), Pharmacy: [facility] #[id number], Use as directed to test blood sugar QD. Dx: 250.00 Start Date: 02/17/16 Status: Ordered One Touch Ultra 2 Meter One Touch Ultra 2 Meter, See Instructions, Use as directed to test blood sugar daily. Dx: 250.00, # 1 Each, 0 Refill(s), Pharmacy: [facility] #[id number], Use as directed to test blood sugar daily. Dx: 250.00 Start Date: 03/24/15 Status: Ordered One Touch Ultra Test Strips One Touch Ultra Test Strips, See Instructions, Use as directed to test blood sugar QD. Dx: 250.00, # 100 Each, 0 Refill(s), Pharmacy: [facility] # [id number], Use as directed to test blood sugar QD. Dx: 250.00 Start Date: 02/20/16 Status: Ordered Results No data available for this section Immunizations Given and Recorded Vaccine Date Status Refusal Reason tetanus/diphth/pertuss (Tdap) adult/adol 07/13/16 Given influenza virus vaccine, inactivated 09/05/14 Recorded Procedures Procedure Date Related Diagnosis Body Site [...] Burton C5/6 and C6/7 ACDF CPT Codes: 27864; 33098; 39559; 29598; 00695 ICD-9 Codes: 723.0; 723.1; 723.4 PO03/02/2015 2auto-populated from documented surgical case 3auto-populated from documented surgical case 4Left knee Melvin PKR unicompartmental total knee medial side. 05704 Global end date 10-20-14 5LEFT 6LEFT KNEE X 2 SURG Social History Social History Type Response Smoking Status Current every day smoker; Tobacco use per day: 1 Pack Assessment and Plan Extracted from: Title: Office Visit Note Author: Danish Aguilera MD Date: 04/07/17 Assessment/Plan 1.Thania-rectal abscess finish coures of abx 2.Insomnia, Insomnia refill ambien, refer to sleep specialist per patient's request. Ordered: Internal Referral to Sleep Medicine Referrals to Other Providers insomnia, referred to: referral to sleep med Referring Provider: Danish Aguilera Patient needing to be seen for (problem): insomniaDoes patient have a diagnosis of insomnia? yesIs patient currently using CPAP/BIPAP/O2?Has patient had previous sleep study, and if yes, when and where was it performed (will need a copy--fax to [phone] east, or [phone] west)?Please note: If patient has had outside sleep study we will await those results before scheduling patient an appt. Patient preference to which location or first available?Patient phone number and best time to reach them: [phone]-- if pt is on CPAP/BIPAP/O2 the [employer] company they use should be able to help you get a copy of the sleep study--have pt sign a release to send report to [facility] [address] [facility], [address] and [place] is [address] [facility], [address], [address] Referred by: Danish Aguilera MD
--- OUTSIDE RECORDS SUMMARY | 2018-03-17 10:51 | XMS REPORT | Referral Summary ---
Author Author [facility] Organization [facility] Address Unknown Phone Unavailable Care Team Providers Care Sample Carrier Name Role Phone Danish Aguilera PCP Encounter VC Date(s): 04/02/16 - 04/02/16 [facility] [address] [place] [id number] Discharge Diagnosis: Left knee pain Discharge Diagnosis: Smoking Discharge Diagnosis: Neck pain Discharge Diagnosis: Genital warts Discharge Disposition: -Home or Self Care Attending Physician: Danish Aguilera MD Admitting Physician: Danish Aguilera MD Vital Signs Most recent to 1 oldest [Reference Range]: Peripheral Pulse 112 bpm Rate [60-100 bpm] *HI* (04/02/16 11:05 AM) Blood Pressure 146/96 mmHg [90-140/60-90 mmHg] *HI* (04/02/16 11:05 AM) Problem List Condition Effective Dates Status [...] Care 5Abscess from Arm collected 11/03/15 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 6Wound, Superficial from Knee L collected 08/06/14 17:01:00 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 Allergies, Adverse Reactions, Alerts Substance Reaction Severity Status Bactrim Rash Active fentaNYL1, 2 GI upset Active n/v Lipitor SORE JOINTS Active methadone Adverse Reaction Active GI upset 1ALLERGY ONLY TO FENTANYL PATCH 2fentanyl patches Medications Advair Diskus 500 mcg-50 mcg inhalation powder 1 puffs, Inhalation, BID, # 60 Each, 5 Refill(s), Pharmacy: [facility] # [id number] Start Date: 01/13/16 Status: Ordered albuterol 90 mcg/inh inhalation powder 2 puffs, Inhalation, q4hr, # 1 Each, 5 Refill(s), Pharmacy: [facility] # [id number] Start Date: 01/13/16 Status: Ordered Ambien 10 mg oral tablet 10 mg 1 tabs, Oral, Bedtime (once a day), as needed for sleep, # 30 tabs, 0 Refill(s) Start Date: 03/29/16 Stop Date: 04/28/16 Status: Ordered Ambien 10 mg oral tablet 1 tabs, Oral, Bedtime (once a day), as needed for sleep, # 30 tabs, 5 Refill(s) Start Date: 01/20/15 Stop Date: 07/19/15 Status: Ordered Chantix Starter Pack 0.5 mg-1 mg oral tablet 1 tabs, Oral, BID, as directed on package labeling, # 53 tabs, 0 Refill(s), Pharmacy: [facility] #[id number] Start Date: 03/24/15 Status: Ordered Chantix Starter Pack 0.5 mg-1 mg oral tablet 1 tabs, Oral, BID, as directed on package labeling, # 53 tabs, 0 Refill(s), Pharmacy: [facility] #[id number] Start Date: 06/13/15 Status: Ordered DULoxetine 60 mg oral delayed release capsule See Instructions, TAKE ONE CAPSULE BY MOUTH DAILY (DO NOT CRUSH OR CHEW), # 30 caps, 0 Refill(s), Pharmacy: [facility] #[id number], TAKE ONE CAPSULE BY MOUTH DAILY (DO NOT CRUSH OR CHEW) Start Date: 02/17/16 Status: Ordered One Touch Delica Lancets One Touch Delica Lancets, See Instructions, Use as directed to test blood sugar QD. Dx: 250.00, # 100 Each, 0 Refill(s), Pharmacy: [facility] #[id number], Use as directed to test blood sugar QD. Dx: 250.00 Start Date: 02/17/16 Status: Ordered One Touch Ultra 2 Meter One Touch Ultra 2 Meter, See Instructions, Use as directed to test blood sugar daily. Dx: 250.00, # 1 Each, 0 Refill(s), Pharmacy: [facility] #[id number], Use as directed to test blood sugar daily. Dx: 250.00 Start Date: 03/24/15 Status: Ordered One Touch Ultra Test Strips One Touch Ultra Test Strips, See Instructions, Use as directed to test blood sugar QD. Dx: 250.00, # 100 Each, 0 Refill(s), Pharmacy: [facility] # [id number], Use as directed to test blood sugar QD. Dx: 250.00 Start Date: 02/20/16 Status: Ordered Spiriva Respimat 1.25 mcg/inh inhalation aerosol 2 puffs, Inhalation, Daily, # 1 Each, 11 Refill(s), Pharmacy: [facility] # [id number], 2 puffs Inhalation Daily Start Date: 01/13/16 Status: Ordered Ultram 50 mg oral tablet 50 mg 1 tabs, Oral, q12hr, as needed for pain, # 30 tabs, 0 Refill(s), called to pharmacy (Rx) Start Date: 02/27/16 Status: Ordered Results No data available for this section Immunizations Vaccine Date Refusal Reason influenza virus vaccine, inactivated 09/05/14 Procedures Procedure Date Related Diagnosis Body Site Destruction of lesion(s), penis (eg, 04/02/16 condyloma, papilloma, molluscum contagiosum, herpetic vesicle), simple; cryosurgery.. Colonoscopy, flexible; with removal of 05/26/15 tumor(s), [...] Burton C5/6 and C6/7 ACDF CPT Codes: 73312; 96515; 69695; 00423; 44081 ICD-9 Codes: 723.0; 723.1; 723.4 PO03/02/2015 2auto-populated from documented surgical case 3auto-populated from documented surgical case 4Left knee Melvin PKR unicompartmental total knee medial side. [id number] Global end date 10-20-14 5LEFT 6LEFT KNEE X 2 SURG Social History Social History Type Response Smoking Status Current every day smoker; Tobacco use per day: 1 Pack Assessment and Plan Extracted from: Title: Ambulatory Patient Education Author: Danish Aguilera MD Date: Family Medicine Smoking Cessation Quitting smoking is important to your health and has many advantages. However, it is not always easy to quit since nicotine is a very addictive drug. Oftentimes, people try 3 times or more before being able to quit. This document explains the best ways for you to prepare to quit smoking. Quitting takes hard work and a lot of effort, but you can do it. ADVANTAGES OF QUITTING SMOKING You will live longer, feel better, and live better. Your body will feel the impact of quitting smoking almost immediately. Within 20 minutes, blood pressure decreases. Your pulse returns to its normal level. After 8 hours, carbon monoxide levels in the blood return to normal. Your oxygen level increases. After 24 hours, the chance of having a heart attack starts to decrease. Your breath, hair, and body stop smelling like smoke. After 48 hours, damaged nerve endings begin to recover. Your sense of taste and smell improve. After 72 hours, the body is virtually free of nicotine. Your bronchial tubes relax and breathing becomes easier. After 2 to 12 weeks, lungs can hold more air. Exercise becomes easier and circulation improves. The risk of having a heart attack, stroke, cancer, or lung disease is greatly reduced. After 1 year, the risk of coronary heart disease is cut in half. After 5 years, the risk of stroke falls to the same as a nonsmoker. After 10 years, the risk of lung cancer is cut in half and the risk of other cancers decreases significantly. After 15 years, the risk of coronary heart disease drops, usually to the level of a nonsmoker. If you are , quitting smoking will improve your chances of having a healthy baby. The people you live with, especially any children, will be healthier. You will have extra money to spend on things other than cigarettes. QUESTIONS TO THINK ABOUT BEFORE ATTEMPTING TO QUIT You may want to talk about your answers with your health care provider. Why do you want to quit? If you tried to quit in the past, what helped and what did not? What will be the most difficult situations for you after you quit? How will you plan to handle them? Who can help you through the tough times? Your family? Friends? A health care provider? What pleasures do you get from smoking? What ways can you still get pleasure if you quit? Here are some questions to ask your health care provider: How can you help me to be successful at quitting? What medicine do you think would be best for me and how should I take it? What should I do if I need more help? What is smoking withdrawal like? How can I get information on withdrawal? GET READY Set a quit date. Change your environment by getting rid of all cigarettes, ashtrays, matches , and lighters in your home, car, or work. Do not let people smoke in your home. Review your past attempts to quit. Think about what worked and what did not. GET SUPPORT AND ENCOURAGEMENT You have a better chance of being successful if you have help. You can get support in many ways. Tell your family, friends, and coworkers that you are going to quit and need their support. Ask them not to smoke around you. Get individual, group, or telephone counseling and support. Programs are available at local hospitals and health centers. Call your local health department for information about programs in your area. Spiritual beliefs and practices may help some smokers quit. Download a "quit meter" on your computer to keep track of quit statistics, such as how long you have gone without smoking, cigarettes not smoked, and money saved. Get a self-help book about quitting smoking and staying off tobacco. LEARN NEW SKILLS AND BEHAVIORS Distract yourself from urges to smoke. Talk to someone, go for a walk, or occupy your time with a task. Change your normal routine. Take a different route to work. Drink tea instead of coffee. Eat breakfast in a different place. Reduce your stress. Take a hot bath, exercise, or read a book. Plan something enjoyable to do every day. Reward yourself for not smoking. Explore interactive web-based programs that specialize in helping you quit. GET MEDICINE AND USE IT CORRECTLY Medicines can help you stop smoking and decrease the urge to smoke. Combining medicine with the above behavioral methods and support can greatly increase your chances of successfully quitting smoking. Nicotine replacement therapy helps deliver nicotine to your body without the negative effects and risks of smoking. Nicotine replacement therapy includes nicotine gum, lozenges, inhalers, nasal sprays, and skin patches. Some may be available [id number]-sze-[id number] and others require a prescription. Antidepressant medicine helps people abstain from smoking, but how this works is unknown. This medicine is available by prescription. Nicotinic receptor partial agonist medicine simulates the effect of nicotine in your brain. This medicine is available by prescription. Ask your health care provider for advice about which medicines to use and how to use them based on your health history. Your health care provider will tell you what side effects to look out for if you choose to be on a medicine or therapy. Carefully read the information on the package. Do not use any other product containing nicotine while using a nicotine replacement product. RELAPSE OR DIFFICULT SITUATIONS Most relapses occur within the first 3 months after quitting. Do not be discouraged if you start smoking again. Remember, most people try several times before finally quitting. You may have symptoms of withdrawal because your body is used to nicotine. You may crave cigarettes, be irritable, feel very hungry, cough often, get headaches, or have difficulty concentrating. The withdrawal symptoms are only temporary. They are strongest when you first quit, but they will go away within 10 14 days. To reduce the chances of relapse, try to: Avoid drinking alcohol. Drinking lowers your chances of successfully quitting. Reduce the amount of caffeine you consume. Once you quit smoking, the amount of caffeine in your body increases and can give you symptoms, such as a rapid heartbeat, sweating, and anxiety. Avoid smokers because they can make you want to smoke. Do not let weight gain distract you. Many smokers will gain weight when they quit, usually less than 10 pounds. Eat a healthy diet and stay active. You can always lose the weight gained after you quit. Find ways to improve your mood other than smoking. FOR MORE INFORMATION www.smokefree.gov This information is not intended to replace advice given to you by your health care provider. Make sure you discuss any questions you have with your health care provider. Document Released: 09/13/2002 Document Revised: 10/10/2015 Document Reviewed: ExitCare Patient Information 2016 [facility], [facility]. No follow up information was provided. Extracted from: Title: Office Visit Note Author: Danish Aguilera MD Date: 04/02/16 Assessment/Plan 1.Smoking itoldhim that nicotinereplacement would be helpful for stopping smoking 2.Neck pain refer to a neck surgeon if neck pain returns 3.Left knee pain refer to ortho if left knee pain worsnes 4.Genital warts verbal consent was obtained and 7 warts were destroyed on penis with cryosurgery.
--- OUTSIDE RECORDS SUMMARY | 2018-03-17 10:51 | XMS REPORT | Referral Summary ---
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 Allergies, Adverse Reactions, Alerts Substance Reaction Severity [...] labeling, # 53 tabs, 0 Refill(s), Pharmacy: [facility] #[id number] Start Date: 03/24/15 Status: Ordered Chantix Starter Pack 0.5 mg-1 mg oral tablet 1 tabs, Oral, BID, as directed on package labeling, # 53 tabs, 0 Refill(s), Pharmacy: [facility] #[id number] Start Date: 06/13/15 Status: Ordered Cymbalta 60 mg oral delayed release capsule 1 caps, Oral, Daily, do not crush or chew, # 30 caps, 5 Refill(s), Pharmacy: [facility] #[id number], 1 caps Oral Daily,Instr:do not crush or chew Start Date: 01/20/15 Status: Ordered lisinopril 20 mg oral tablet mg tabs, Oral, Daily, 0 Refill(s) Start Date: 05/26/15 Status: Ordered One Touch Delica Lancets One Touch Delica Lancets, See Instructions, Use as directed to test blood sugar QD. Dx: 250.00, # 100 Each, 2 Refill(s), Pharmacy: [facility] #[id number], Use as directed to test blood sugar QD. Dx: 250.00 Start Date: 03/24/15 Status: Ordered One Touch Ultra 2 Meter One Touch Ultra 2 Meter, See Instructions, Use as directed to test blood sugar daily. Dx: 250.00, # 1 Each, 0 Refill(s), Pharmacy: [facility] #[id number], Use as directed to test blood sugar daily. Dx: 250.00 Start Date: 03/24/15 Status: Ordered One Touch Ultra Test Strips One Touch Ultra Test Strips, See Instructions, Use as directed to test blood sugar QD. Dx: 250.00, # 100 Each, 3 Refill(s), Pharmacy: [facility] # [id number], Use as directed to test blood sugar [...] 1.88 10*3 [0.80-3.30 10*3] (03/24/15 1:52 PM) [place] Absolute 0.89 10*3 [0.30-1.00 10*3] (03/24/15 1:52 [...] Burton C5/6 and C6/7 ACDF CPT Codes: 01809; 40704; 33925; 84184; 74757 ICD-9 Codes: 723.0; 723.1; 723.4 PO03/02/2015 2auto-populated from documented surgical case 3auto-populated from documented surgical case 4Left knee Melvin PKR unicompartmental total knee medial side. [id number] Global end date 10-20-14 5LEFT 6LEFT KNEE X 2 SURG Social History Social History Type Response Smoking Status Current every day smoker Assessment and Plan Extracted from: Title: Office [...] labeling, # 53 tabs, 0 Refill(s), Pharmacy: [facility] #[id number] 3.Lung nodule reCT scan in October Ordered: [...]
--- OUTSIDE RECORDS SUMMARY | 2018-03-17 10:51 | XMS REPORT | Referral Summary ---
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 Allergies, Adverse Reactions, Alerts Substance Reaction Severity [...] labeling, # 53 tabs, 0 Refill(s), Pharmacy: [facility] #[id number] Start Date: 03/24/15 Status: Ordered Chantix Starter Pack 0.5 mg-1 mg oral tablet 1 tabs, Oral, BID, as directed on package labeling, # 53 tabs, 0 Refill(s), Pharmacy: [facility] #[id number] Start Date: 06/13/15 Status: Ordered Cymbalta 60 mg oral delayed release capsule 1 caps, Oral, Daily, do not crush or chew, # 30 caps, 5 Refill(s), Pharmacy: [facility] #[id number], 1 caps Oral Daily,Instr:do not crush or chew Start Date: 01/20/15 Status: Ordered lisinopril 20 mg oral tablet mg tabs, Oral, Daily, 0 Refill(s) Start Date: 05/26/15 Status: Ordered One Touch Delica Lancets One Touch Delica Lancets, See Instructions, Use as directed to test blood sugar QD. Dx: 250.00, # 100 Each, 2 Refill(s), Pharmacy: [facility] #[id number], Use as directed to test blood sugar QD. Dx: 250.00 Start Date: 03/24/15 Status: Ordered One Touch Ultra 2 Meter One Touch Ultra 2 Meter, See Instructions, Use as directed to test blood sugar daily. Dx: 250.00, # 1 Each, 0 Refill(s), Pharmacy: [facility] #[id number], Use as directed to test blood sugar daily. Dx: 250.00 Start Date: 03/24/15 Status: Ordered One Touch Ultra Test Strips One Touch Ultra Test Strips, See Instructions, Use as directed to test blood sugar QD. Dx: 250.00, # 100 Each, 3 Refill(s), Pharmacy: [facility] # [id number], Use as directed to test blood sugar [...] Burton C5/6 and C6/7 ACDF CPT Codes: 96370; 70962; 27583; 06818; 66043 ICD-9 Codes: 723.0; 723.1; 723.4 PO03/02/2015 2auto-populated from documented surgical case 3auto-populated from documented surgical case 4Left knee [place] PKR unicompartmental total knee medial side. [id number] Global end date 10-20-14 5LEFT 6LEFT KNEE X 2 SURG Social History Social History Type Response Smoking Status Current every day smoker Assessment and Plan No data available for this section
--- OUTSIDE RECORDS SUMMARY | 2018-03-17 10:51 | XMS REPORT | Referral Summary ---
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 Allergies, Adverse Reactions, Alerts Substance Reaction Severity [...] labeling, # 53 tabs, 0 Refill(s), Pharmacy: [facility] #[id number] Start Date: 03/24/15 Status: Ordered Chantix Starter Pack 0.5 mg-1 mg oral tablet 1 tabs, Oral, BID, as directed on package labeling, # 53 tabs, 0 Refill(s), Pharmacy: [facility] #[id number] Start Date: 06/13/15 Status: Ordered Cymbalta 60 mg oral delayed release capsule 1 caps, Oral, Daily, do not crush or chew, # 30 caps, 5 Refill(s), Pharmacy: [facility] #[id number], 1 caps Oral Daily,Instr:do not crush or chew Start Date: 01/20/15 Status: Ordered lisinopril 20 mg oral tablet mg tabs, Oral, Daily, 0 Refill(s) Start Date: 05/26/15 Status: Ordered One Touch Delica Lancets One Touch Delica Lancets, See Instructions, Use as directed to test blood sugar QD. Dx: 250.00, # 100 Each, 2 Refill(s), Pharmacy: [facility] #[id number], Use as directed to test blood sugar QD. Dx: 250.00 Start Date: 03/24/15 Status: Ordered One Touch Ultra 2 Meter One Touch Ultra 2 Meter, See Instructions, Use as directed to test blood sugar daily. Dx: 250.00, # 1 Each, 0 Refill(s), Pharmacy: [facility] #[id number], Use as directed to test blood sugar daily. Dx: 250.00 Start Date: 03/24/15 Status: Ordered One Touch Ultra Test Strips One Touch Ultra Test Strips, See Instructions, Use as directed to test blood sugar QD. Dx: 250.00, # 100 Each, 3 Refill(s), Pharmacy: [facility] # [id number], Use as directed to test blood sugar [...] Burton C5/6 and C6/7 ACDF CPT Codes: 47394; 41775; 29961; 01722; 16242 ICD-9 Codes: 723.0; 723.1; 723.4 PO03/02/2015 2auto-populated from documented surgical case 3auto-populated from documented surgical case 4Left knee Melvin PKR unicompartmental total knee medial side. [id number] Global end date 10-20-14 5LEFT 6LEFT KNEE X 2 SURG Social History Social History Type Response Smoking Status Current every day smoker Assessment and Plan Extracted from: Title: Office Visit Note Author: Yaw Manrique Date: 02/27/15 Assessment/Plan Orthopedic aftercare Patient overall doing very well. No new issues. He can gradually work back into his regular activities. We'll see him back in 3 months see how is doing. We need AP/flexion/extension radiographs.. Ordered: Postoperative Est [id number] Return to Clinic XR Spine Cervical 2 or 3 Views Referrals to Other Providers Referred by: Yaw Manrique MD
--- OUTSIDE RECORDS SUMMARY | 2018-03-17 10:52 | XMS REPORT | Referral Summary ---
Author Author [facility] Organization [facility] Address Unknown Phone Unavailable Care Team Providers Care Reagent Tender Name Role Phone Danish Aguilera PCP Encounter VC Date(s): 05/26/15 - 05/26/15 [facility], Surgery [address] [place], [place] [address] Discharge Disposition: 01-Home or Self Care Attending Physician: Edilberto Miranda MD Admitting Physician: Edilberto Miranda MD Vital Signs Most recent to 1 oldest [Reference Range]: Temperature Temporal 36.5 degC Artery [36.3-37.8 (05/26/15 7:10 AM) degC] Peripheral Pulse 90 bpm Rate [60-100 bpm] (05/26/15 7:10 AM) Respiratory Rate 16 br/min [14-20 br/min] (05/26/15 7:10 AM) Blood Pressure 140/87 mmHg [90-140/60-90 mmHg] (05/26/15 7:10 AM) SpO2 95 % (05/26/15 7:10 AM) Problem List Condition Effective Dates Status [...] Care 5Abscess from Arm collected 11/03/15 11:18:00 MACHINE TECHNICIAN 6Wound, Superficial from Knee L collected 08/06/14 17:01:00 MACHINE TECHNICIAN Allergies, Adverse Reactions, Alerts Substance Reaction Severity [...] pharmacy (Rx) Start Date: 11/21/15 Stop Date: 3/20/16 Status: Ordered Chantix Starter Pack 0.5 mg-1 mg oral tablet 1 tabs, Oral, BID, as directed on package labeling, # 53 tabs, 0 Refill(s), Pharmacy: [facility] #[id number] Start Date: 03/24/15 Status: Ordered Chantix Starter Pack 0.5 mg-1 mg oral tablet 1 tabs, Oral, BID, as directed on package labeling, # 53 tabs, 0 Refill(s), Pharmacy: [facility] #[id number] Start Date: 06/13/15 Status: Ordered DULoxetine 60 mg oral delayed release capsule See Instructions, TAKE ONE CAPSULE BY MOUTH DAILY (DO NOT CRUSH OR CHEW) due for appt,pleae call to schedule, # 30 caps, 0 Refill(s), Pharmacy: [facility] #[id number], TAKE ONE CAPSULE BY MOUTH DAILY (DO NOT CRUSH OR CHEW); due for appt,pleae... Start Date: 11/11/15 Status: Ordered lisinopril 20 mg oral tablet mg tabs, Oral, Daily, 0 Refill(s) Start Date: 05/26/15 Status: Ordered One Touch Delica Lancets One Touch Delica Lancets, See Instructions, Use as directed to test blood sugar QD. Dx: 250.00, # 100 Each, 2 Refill(s), Pharmacy: [facility] #[id number], Use as directed to test blood sugar QD. Dx: 250.00 Start Date: 03/24/15 Status: Ordered One Touch Ultra 2 Meter One Touch Ultra 2 Meter, See Instructions, Use as directed to test blood sugar daily. Dx: 250.00, # 1 Each, 0 Refill(s), Pharmacy: [facility] #[id number], Use as directed to test blood sugar daily. Dx: 250.00 Start Date: 03/24/15 Status: Ordered One Touch Ultra Test Strips One Touch Ultra Test Strips, See Instructions, Use as directed to test blood sugar QD. Dx: 250.00, # 100 Each, 3 Refill(s), Pharmacy: [facility] # [id number], Use as directed to test blood sugar QD. Dx: 250.00 Start Date: 6/22/15 Status: Ordered Ultram 50 mg oral tablet [...] 05/26/15 tumor(s), polyp(s), or other lesion(s) by hot biopsy forceps Colonoscopy, flexible; with removal of 05/26/15 tumor(s), polyp(s), or other lesion(s) by hot biopsy forceps Colonoscopy, flexible; with removal of 05/26/15 tumor(s), polyp(s), or other lesion(s) by snare technique Colonoscopy, flexible; with removal of 05/26/15 tumor(s), polyp(s), or other lesion(s) by snare technique Colonoscopy, flexible; with removal of 05/26/15 tumor(s), [...] Burton C5/6 and C6/7 ACDF CPT Codes: 70041; 54007; 92863; 36888; 54628 ICD-9 Codes: 723.0; 723.1; 723.4 PO03/02/2015 2auto-populated from documented surgical case 3auto-populated from documented surgical case 4Left knee [place] PKR unicompartmental total knee medial side. 83832 Global end date 10-20-14 5LEFT 6LEFT KNEE X 2 SURG Social History Social History Type Response Smoking Status Current every day smoker; Tobacco use per day: 1 Pack Assessment and Plan Extracted from: Title: Ambulatory Patient Education Author: Melba Harrell RN Date: 05/26/15 [facility] [place] [phone] [facility] [place] [phone] Endoscopy discharge instructions Diet Start with liquids, then light foods, then progress to normal foods. Medication Resume routine medications. Follow- up Care If any problems occur or if you have any further questions, please contact your physician at [phone]. In an emergency, call [phone] ([phone]), if you cannot reach your physician. If you find that you cannot contact your physician, but feel that your signs and symptoms warrant a physician s attention, go to an Emergency room which is the closest to you. You have had: X Colonoscopy Upper Endoscopy Liver Biopsy You should rest today. You have had sedating medicines. Until tomorrow please: Do NOT drive or operate hazardous machinery or power tools. Do NOT drink alcoholic beverages, not even beer or wine. Do NOT make important or legal decisions. Do NOT shower or bathe as this may cause dizziness. Because of the sedation you have received, we ask that a responsible adult be with you for the rest of the day for your safety and protection. Call your doctor promptly if you have: Redness or swelling at IV site. If fever over 101degree Pain not relieved by pain medication by Tylenol. Coughing or spitting up blood. Persistent nausea and vomiting. Excessive blood with bowel movement. Findings: You had 4 polyps removed. Further recommendations will follow once the pathology report is available. No follow up information was provided.
--- OUTSIDE RECORDS SUMMARY | 2018-03-17 10:52 | XMS REPORT | Referral Summary ---
Author Author [facility], Hector Abbasi, Orthopedics Organization [facility] Address Unknown Phone Unavailable Care Team Providers Care Marketing Secretary Name Role Phone Danish Aguilera PCP Encounter VC 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 Allergies, Adverse Reactions, Alerts Substance Reaction Severity [...] labeling, # 53 tabs, 0 Refill(s), Pharmacy: [facility] #[id number] Start Date: 03/24/15 Status: Ordered Chantix Starter Pack 0.5 mg-1 mg oral tablet 1 tabs, Oral, BID, as directed on package labeling, # 53 tabs, 0 Refill(s), Pharmacy: [facility] #[id number] Start Date: 06/13/15 Status: Ordered Cymbalta 60 mg oral delayed release capsule 1 caps, Oral, Daily, do not crush or chew, # 30 caps, 5 Refill(s), Pharmacy: [facility] #[id number], 1 caps Oral Daily,Instr:do not crush or chew Start Date: 01/20/15 Status: Ordered lisinopril 20 mg oral tablet mg tabs, Oral, Daily, 0 Refill(s) Start Date: 05/26/15 Status: Ordered One Touch Delica Lancets One Touch Delica Lancets, See Instructions, Use as directed to test blood sugar QD. Dx: 250.00, # 100 Each, 2 Refill(s), Pharmacy: [facility] #[id number], Use as directed to test blood sugar QD. Dx: 250.00 Start Date: 03/24/15 Status: Ordered One Touch Ultra 2 Meter One Touch Ultra 2 Meter, See Instructions, Use as directed to test blood sugar daily. Dx: 250.00, # 1 Each, 0 Refill(s), Pharmacy: [facility] #[id number], Use as directed to test blood sugar daily. Dx: 250.00 Start Date: 03/24/15 Status: Ordered One Touch Ultra Test Strips One Touch Ultra Test Strips, See Instructions, Use as directed to test blood sugar QD. Dx: 250.00, # 100 Each, 3 Refill(s), Pharmacy: [facility] # [id number], Use as directed to test blood sugar [...] Burton C5/6 and C6/7 ACDF CPT Codes: 74983; 52083; 89556; 05964; 54846 ICD-9 Codes: 723.0; 723.1; 723.4 PO03/02/2015 2auto-populated from documented surgical case 3auto-populated from documented surgical case 4Left knee [place] [address] unicompartmental total knee medial side. 31111 Global end date 10-20-14 5LEFT 6LEFT KNEE [...] We need AP/flexion/extension radiographs.. Ordered: Postoperative Est 50796 Return to Clinic XR Spine Cervical 2 or 3 Views Referrals to Other Providers Referred by: Yaw Manrique MD
--- OUTSIDE RECORDS SUMMARY | 2018-03-17 10:52 | XMS REPORT | Referral Summary ---
Author Author [facility], Malhar Selina, Optometry Organization [facility], [place], [facility] Address Unknown Phone Unavailable Care Team Providers Care Powder Core Tester Name Role Phone Danish Aguilera PCP Encounter VC Date(s): 07/22/15 - 07/22/15 [facility], Mal[facility] Selina, Opt[facility] [address] [place], [place] [address] Discharge Diagnosis: Dry eye syndrome of bilateral [...] Care 5Abscess from Arm collected 11/03/15 11:18:00 CLINICAL TRIALS NURSE 6Wound, Superficial from Knee L collected 08/06/14 17:01:00 CLINICAL TRIALS NURSE Allergies, Adverse Reactions, Alerts Substance Reaction Severity Status Bactrim Rash Active fentaNYL1, 2 GI upset Active n/v Lipitor SORE JOINTS Active methadone Adverse Reaction Active GI upset 1ALLERGY ONLY TO FENTANYL PATCH 2fentanyl patches Medications Advair Diskus 500 mcg-50 mcg inhalation powder 1 puffs, Inhalation, BID, # 60 Each, 5 Refill(s), Pharmacy: [facility] # [id number] Start Date: 01/13/16 Status: Ordered albuterol 90 mcg/inh inhalation powder 2 puffs, Inhalation, q4hr, # 1 Each, 5 Refill(s), Pharmacy: [facility] # [id number] Start Date: 01/13/16 Status: Ordered Ambien 10 [...] labeling, # 53 tabs, 0 Refill(s), Pharmacy: [facility] #[id number] Start Date: 03/24/15 Status: Ordered Chantix Starter Pack 0.5 mg-1 mg oral tablet 1 tabs, Oral, BID, as directed on package labeling, # 53 tabs, 0 Refill(s), Pharmacy: [facility] #[id number] Start Date: 06/13/15 Status: Ordered DULoxetine 60 mg oral delayed release capsule See Instructions, TAKE ONE CAPSULE BY MOUTH DAILY (DO NOT CRUSH OR CHEW), # 30 caps, eRx: [facility] #[id number], TAKE ONE CAPSULE BY MOUTH DAILY (DO NOT CRUSH OR CHEW) Start Date: 01/19/16 Status: Ordered lisinopril 20 mg oral tablet mg tabs, Oral, Daily, 0 Refill(s) Start Date: 05/26/15 Status: Ordered One Touch Delica Lancets One Touch Delica Lancets, See Instructions, Use as directed to test blood sugar QD. Dx: 250.00, # 100 Each, 2 Refill(s), Pharmacy: [facility] #[id number], Use as directed to test blood sugar QD. Dx: 250.00 Start Date: 03/24/15 Status: Ordered One Touch Ultra 2 Meter One Touch Ultra 2 Meter, See Instructions, Use as directed to test blood sugar daily. Dx: 250.00, # 1 Each, 0 Refill(s), Pharmacy: [facility] #[id number], Use as directed to test blood sugar daily. Dx: 250.00 Start Date: 03/24/15 Status: Ordered One Touch Ultra Test Strips One Touch Ultra Test Strips, See Instructions, Use as directed to test blood sugar QD. Dx: 250.00, # 100 Each, 3 Refill(s), Pharmacy: [facility] # [id number], Use as directed to test blood sugar QD. Dx: 250.00 Start Date: 03/24/15 Status: Ordered predniSONE 20 mg oral tablet See Instructions, 2 tabs daily for 5 days then one tabe daily for 5 days., # 15 tabs, 0 Refill(s), Pharmacy: [facility] #[id number], 2 tabs daily for 5 days then one tabe daily for 5 days. Start Date: 01/13/16 Status: Ordered Spiriva Respimat 1.25 mcg/inh inhalation aerosol 2 puffs, Inhalation, Daily, # 1 Each, 11 Refill(s), Pharmacy: [facility] # [id number], 2 puffs Inhalation Daily Start Date: 01/13/16 [...] Burton C5/6 and C6/7 ACDF CPT Codes: 36105; 84747; 81055; 30506; 15282 ICD-9 Codes: 723.0; 723.1; 723.4 PO03/02/2015 2auto-populated from documented surgical case 3auto-populated from documented surgical case 4Left knee [place] [address] unicompartmental total knee medial side. 31994 Global end date 10-20-14 5LEFT 6LEFT KNEE [...] is easily made on exam by your nuclear waste management engineer or assistant shift supervisor. You should have your eyes checked regularly [...] vision. This should be discussed with the assistant shift supervisor before having surgery or a laser treatment. These types of approaches may affect the way the eyes work together. Document Released: 08/12/2005 Document Revised: 02/03/2015 Document Reviewed: [facility] Patient Information 2015 [facility], [facility]. This information is not intended to replace advice given to you by your health care provider. Make sure you discuss any questions you have with your health care provider. No follow up information was provided. Extracted from: Title: Eye Exam am Author: George Christy OD Date: 07/22/15 Impression and Plan Diagnosis Presbyopia (XDD26-FM H52.4, Discharge, Medical). Diabetes mellitus (WWA75-AB E11.9, Discharge, Medical). Dry eye syndrome of bilateral lacrimal glands (CLW66-QT H04.123, Discharge, Medical). Plan: Patient education on glycemic level effect on the retinal blood vessels and the effect on the eye in general. , Tears PRN. , Spectacle prescription. . Patient Instructions: Presbyopia, 1 year. Prescription: Ophthalmology Rx (ST) No qualifying data available.
--- OUTSIDE RECORDS SUMMARY | 2018-03-17 10:53 | XMS REPORT | Referral Summary ---
Author Author [facility] Organization [facility] Address Unknown Phone Unavailable Care Team Providers Care Neonatal Specialist Name Role Phone Danish Aguilera PCP Encounter [facility] Date(s): 03/24/15 - 03/24/15 [facility], [facility] [address] [place] [id number] Discharge Diagnosis: Leg cramps [...] Superficial from Knee L collected 08/06/14 17:01:00 MOBILE QA TESTER Allergies, Adverse Reactions, Alerts Substance Reaction Severity [...] labeling, # 53 tabs, 0 Refill(s), Pharmacy: [facility] #[id number] Start Date: 03/24/15 Status: Ordered Chantix Starter Pack 0.5 mg-1 mg oral tablet 1 tabs, Oral, BID, as directed on package labeling, # 53 tabs, 0 Refill(s), Pharmacy: [facility] #[id number] Start Date: 06/13/15 Status: Ordered Cymbalta 60 mg oral delayed release capsule See Instructions, TAKE ONE CAPSULE BY MOUTH DAILY (DO NOT CRUSH OR CHEW), # 30 caps, eRx: [facility] #[id number], TAKE ONE CAPSULE BY MOUTH DAILY (DO NOT CRUSH OR CHEW) Start Date: 09/15/15 Status: Ordered lisinopril 20 mg oral tablet mg tabs, Oral, Daily, 0 Refill(s) Start Date: 05/26/15 Status: Ordered One Touch Delica Lancets One Touch Delica Lancets, See Instructions, Use as directed to test blood sugar QD. Dx: 250.00, # 100 Each, 2 Refill(s), Pharmacy: [facility] #[id number], Use as directed to test blood sugar QD. Dx: 250.00 Start Date: 03/24/15 Status: Ordered One Touch Ultra 2 Meter One Touch Ultra 2 Meter, See Instructions, Use as directed to test blood sugar daily. Dx: 250.00, # 1 Each, 0 Refill(s), Pharmacy: [facility] #[id number], Use as directed to test blood sugar daily. Dx: 250.00 Start Date: 03/24/15 Status: Ordered One Touch Ultra Test Strips One Touch Ultra Test Strips, See Instructions, Use as directed to test blood sugar QD. Dx: 250.00, # 100 Each, 3 Refill(s), Pharmacy: [facility] # [id number], Use as directed to test blood sugar [...] 1.88 10*3 [0.80-3.30 10*3] (03/24/15 1:52 PM) [place] Absolute 0.89 10*3 [0.30-1.00 10*3] (03/24/15 1:52 [...] Burton C5/6 and C6/7 ACDF CPT Codes: 70367; 72730; 62439; 42310; 88087 ICD-9 Codes: 723.0; 723.1; 723.4 PO03/02/2015 2auto-populated from documented surgical case 3auto-populated from documented surgical case 4Left knee [place] PKR unicompartmental total knee medial side. 90283 Global end date 10-20-14 5LEFT 6LEFT KNEE [...] labeling, # 53 tabs, 0 Refill(s), Pharmacy: [facility] #[id number] 3.Lung nodule reCT scan in October Ordered: [...]
--- OUTSIDE RECORDS SUMMARY | 2018-03-17 10:53 | XMS REPORT | Referral Summary ---
Author Author [facility] Organization [facility] Address Unknown Phone Unavailable Care Team Providers Care Business Database Analyst Name Role Phone Danish Aguilera PCP Encounter VC Date(s): 01/13/16 - 01/13/16 [facility] [address] [place] [id number] Discharge Diagnosis: Cervical radiculopathy Discharge Diagnosis: Pulmonary nodule Discharge Diagnosis: Chronic obstructive pulmonary disease Discharge Diagnosis: COPD exacerbation Discharge Disposition: -Home or Self Care Attending Physician: Danish Aguilera MD Admitting Physician: Danish Aguilera MD Vital Signs Most recent to 1 oldest [Reference Range]: Peripheral Pulse 84 bpm Rate [60-100 bpm] (01/13/16 11:42 AM) Blood Pressure 138/86 mmHg [90-140/60-90 mmHg] (01/13/16 11:42 AM) SpO2 98 % (01/13/16 11:42 AM) Problem List Condition Effective Dates Status [...] Care 5Abscess from Arm collected 11/03/15 11:18:00 ANTHROPOLOGY FACULTY MEMBER 6Wound, Superficial from Knee L collected 08/06/14 17:01:00 ANTHROPOLOGY FACULTY MEMBER Allergies, Adverse Reactions, Alerts Substance Reaction Severity Status Bactrim Rash Active fentaNYL1, 2 GI upset Active n/v Lipitor SORE JOINTS Active methadone Adverse Reaction Active GI upset 1ALLERGY ONLY TO FENTANYL PATCH 2fentanyl patches Medications Advair Diskus 500 mcg-50 mcg inhalation powder 1 puffs, Inhalation, BID, # 60 Each, 5 Refill(s), Pharmacy: [facility] # [id number] Start Date: 01/13/16 Status: Ordered albuterol 90 mcg/inh inhalation powder 2 puffs, Inhalation, q4hr, # 1 Each, 5 Refill(s), Pharmacy: [facility] # [id number] Start Date: 01/13/16 Status: Ordered Ambien 10 mg oral tablet 1 tabs, Oral, Bedtime (once a day), as needed for sleep, # 30 tabs, 5 Refill(s) Start Date: 01/20/15 Stop Date: 07/19/15 Status: Ordered Ambien 10 mg oral tablet 10 mg 1 tabs, Oral, Bedtime (once a day), as needed for sleep, # 30 tabs, 0 Refill(s) Start Date: 12/24/15 Stop Date: 01/23/16 Status: Ordered Chantix Starter Pack 0.5 mg-1 mg oral tablet 1 tabs, Oral, BID, as directed on package labeling, # 53 tabs, 0 Refill(s), Pharmacy: [facility] #[id number] Start Date: 03/24/15 Status: Ordered Chantix Starter Pack 0.5 mg-1 mg oral tablet 1 tabs, Oral, BID, as directed on package labeling, # 53 tabs, 0 Refill(s), Pharmacy: [facility] #[id number] Start Date: 06/13/15 Status: Ordered DULoxetine 60 mg oral delayed release capsule See Instructions, TAKE ONE CAPSULE BY MOUTH DAILY (DO NOT CRUSH OR CHEW), # 30 caps, eRx: [facility] #[id number], TAKE ONE CAPSULE BY MOUTH DAILY (DO NOT CRUSH OR CHEW) Start Date: 12/18/15 Status: Ordered lisinopril 20 mg oral tablet mg tabs, Oral, Daily, 0 Refill(s) Start Date: 05/26/15 Status: Ordered One Touch Delica Lancets One Touch Delica Lancets, See Instructions, Use as directed to test blood sugar QD. Dx: 250.00, # 100 Each, 2 Refill(s), Pharmacy: [facility] #[id number], Use as directed to test blood sugar QD. Dx: 250.00 Start Date: 03/24/15 Status: Ordered One Touch Ultra 2 Meter One Touch Ultra 2 Meter, See Instructions, Use as directed to test blood sugar daily. Dx: 250.00, # 1 Each, 0 Refill(s), Pharmacy: [facility] #[id number], Use as directed to test blood sugar daily. Dx: 250.00 Start Date: 03/24/15 Status: Ordered One Touch Ultra Test Strips One Touch Ultra Test Strips, See Instructions, Use as directed to test blood sugar QD. Dx: 250.00, # 100 Each, 3 Refill(s), Pharmacy: [facility] # [id number], Use as directed to test blood sugar QD. Dx: 250.00 Start Date: 03/24/15 Status: Ordered predniSONE 20 mg oral tablet See Instructions, 2 tabs daily for 5 days then one tabe daily for 5 days., # 15 tabs, 0 Refill(s), Pharmacy: [facility] #[id number], 2 tabs daily for 5 days then one tabe daily for 5 days. Start Date: 01/13/16 Status: Ordered Spiriva Respimat 1.25 mcg/inh inhalation aerosol 2 puffs, Inhalation, Daily, # 1 Each, 11 Refill(s), Pharmacy: [facility] # [id number], 2 puffs Inhalation Daily Start Date: 01/13/16 [...] Burton C5/6 and C6/7 ACDF CPT Codes: 15365; 84671; 65415; 79813; 80335 ICD-9 Codes: 723.0; 723.1; 723.4 PO03/02/2015 2auto-populated from documented surgical case 3auto-populated from documented surgical case 4Left knee [place] [address] unicompartmental total knee medial side. [id number] Global end date 10-20-14 5LEFT 6LEFT KNEE X 2 SURG Social History Social History Type Response Smoking Status Current every day smoker; Tobacco use per day: 1 Pack Assessment and Plan Extracted from: Title: Ambulatory Patient Education Author: Danish Aguilera MD Date: Anesthesiology Cervical Radiculopathy Cervical radiculopathy happens when a nerve in the neck is pinched or bruised by a slipped (herniated) disk or by arthritic changes in the bones of the cervical spine. This can occur due to an injury or as part of the normal aging process. Pressure on the cervical nerves can cause pain or numbness that runs from your neck all the way down into your arm and fingers. CAUSES There are many possible causes, including: Injury. Muscle tightness in the neck from overuse. Swollen, painful joints (arthritis). Breakdown or degeneration in the bones and joints of the spine (spondylosis ) due to aging. Bone spurs that may develop near the cervical nerves. SYMPTOMS Symptoms include pain, weakness, or numbness in the affected arm and hand. Pain can be severe or irritating. Symptoms may be worse when extending or turning the neck. DIAGNOSIS Your caregiver will ask about your symptoms and do a physical exam. He or she may test your strength and reflexes. X-rays, CT scans, and MRI scans may be needed in cases of injury or if the symptoms do not go away after a period of time. Electromyography (EMG) or nerve conduction testing may be done to study how your nerves and muscles are working. TREATMENT Your caregiver may recommend certain exercises to help relieve your symptoms. Cervical radiculopathy can, and often does, get better with time and treatment. If your problems continue, treatment options may include: Wearing a soft collar for short periods of time. Physical therapy to strengthen the neck muscles. Medicines, such as nonsteroidal anti-inflammatory drugs (NSAIDs), oral corticosteroids, or spinal injections. Surgery. Different types of surgery may be done depending on the cause of your problems. HOME CARE INSTRUCTIONS Put ice on the affected area. Put ice in a plastic bag. Place a towel between your skin and the bag. Leave the ice on for 15-20 minutes, 03-04 times a day or as directed by your caregiver. If ice does not help, you can try using heat. Take a warm shower or bath, or use a hot water bottle as directed by your caregiver. You may try a gentle neck and shoulder massage. Use a flat pillow when you sleep. Only take [id number] or prescription medicines for pain, discomfort, or fever as directed by your caregiver. If physical therapy was prescribed, follow your caregiver's directions. If a soft collar was prescribed, use it as directed. SEEK IMMEDIATE MEDICAL CARE IF: Your pain gets much worse and cannot be controlled with medicines. You have weakness or numbness in your hand, arm, face, or leg. You have a high fever or a stiff, rigid neck. You lose bowel or bladder control (incontinence). You have trouble with walking, balance, or speaking. MAKE SURE YOU: Understand these instructions. Will watch your condition. Will get help right away if you are not doing well or get worse. This information is not intended to replace advice given to you by your health care provider. Make sure you discuss any questions you have with your health care provider. Document Released: 06/14/2002 Document Revised: 12/11/2012 Document Reviewed: [facility] Patient Information 2015 [email or web address]. No follow up information was provided. Extracted from: Title: Office Visit Note Author: Danish Aguilera MD Date: 01/13/16 Assessment/Plan 1.Chronic obstructive pulmonary disease I will tx as exacdrbation with steroids and zpack. send out albtueorl, spiriva and advair Ordered: albuterol, 2 puffs, Inhalation, q4hr, # 1 Each, 5 Refill(s), Pharmacy: [facility] #[id number] predniSONE, See Instructions, 2 tabs daily for 5 days then one tabe daily for 5 days., # 15 tabs, 0 Refill(s), Pharmacy: [facility] #[id number], 2 tabs daily for 5 days then one tabe daily for 5 days. tiotropium, 2 puffs, Inhalation, Daily, # 1 Each, 11 Refill(s), Pharmacy: [facility] #[id number], 2 puffs Inhalation Daily 2.Pulmonary nodule refer to Pulmonology. CT scans have been reassuring but patient is concerned about this Ordered: albuterol, 2 puffs, Inhalation, q4hr, # 1 Each, 5 Refill(s), Pharmacy: [facility] #[id number] predniSONE, See Instructions, 2 tabs daily for 5 days then one tabe daily for 5 days., # 15 tabs, 0 Refill(s), Pharmacy: [facility] #[id number], 2 tabs daily for 5 days then one tabe daily for 5 days. tiotropium, 2 puffs, Inhalation, Daily, # 1 Each, 11 Refill(s), Pharmacy: [facility] #[id number], 2 puffs Inhalation Daily 3.Cervical radiculopathy PT, follow up in6 weeks. Ordered: albuterol, 2 puffs, Inhalation, q4hr, # 1 Each, 5 Refill(s), Pharmacy: [facility] #[id number] predniSONE, See Instructions, 2 tabs daily for 5 days then one tabe daily for 5 days., # 15 tabs, 0 Refill(s), Pharmacy: [facility] #[id number], 2 tabs daily for 5 days then one tabe daily for 5 days. tiotropium, 2 puffs, Inhalation, Daily, # 1 Each, 11 Refill(s), Pharmacy: [facility] #[id number], 2 puffs Inhalation Daily Request for Therapies 4.COPD exacerbation Orders: fluticasone-salmeterol, 1 puffs, Inhalation, BID, # 60 Each, 5 Refill( s), Pharmacy: [facility] #[id number]
--- OUTSIDE RECORDS SUMMARY | 2018-03-17 10:53 | XMS REPORT | Referral Summary ---
Author Author [facility] Organization [facility] [address] Address Unknown Phone Unavailable Care Team Providers Care Chemical Operations Specialist Name Role Phone Danish Aguilera PCP Encounter VC Date(s): 06/11/15 - 06/11/15 [facility] [address] [place], [place] [address] Discharge Diagnosis: Status post unicompartmental knee replacement, left Discharge Disposition: 01-Home or Self Care Attending Physician: Sundeep Rainey MD Admitting Physician: Sundeep Rainey MD Vital Signs No data available for [...] Care 5Abscess from Arm collected 11/03/15 11:18:00 CERTIFIED ALCOHOL COUNSELOR 6Wound, Superficial from Knee L collected 08/06/14 17:01:00 CERTIFIED ALCOHOL COUNSELOR Allergies, Adverse Reactions, Alerts Substance Reaction Severity [...] labeling, # 53 tabs, 0 Refill(s), Pharmacy: [facility] #[id number] Start Date: 03/24/15 Status: Ordered Chantix Starter Pack 0.5 mg-1 mg oral tablet 1 tabs, Oral, BID, as directed on package labeling, # 53 tabs, 0 Refill(s), Pharmacy: [facility] #[id number] Start Date: 06/13/15 Status: Ordered DULoxetine 60 mg oral delayed release capsule See Instructions, TAKE ONE CAPSULE BY MOUTH DAILY (DO NOT CRUSH OR CHEW), # 30 caps, eRx: [facility] #[id number], TAKE ONE CAPSULE BY MOUTH DAILY (DO NOT CRUSH OR CHEW) Start Date: 12/18/15 Status: Ordered lisinopril 20 mg oral tablet mg tabs, Oral, Daily, 0 Refill(s) Start Date: 05/26/15 Status: Ordered One Touch Delica Lancets One Touch Delica Lancets, See Instructions, Use as directed to test blood sugar QD. Dx: 250.00, # 100 Each, 2 Refill(s), Pharmacy: [facility] #[id number], Use as directed to test blood sugar QD. Dx: 250.00 Start Date: 03/24/15 Status: Ordered One Touch Ultra 2 Meter One Touch Ultra 2 Meter, See Instructions, Use as directed to test blood sugar daily. Dx: 250.00, # 1 Each, 0 Refill(s), Pharmacy: [facility] #[id number], Use as directed to test blood sugar daily. Dx: 250.00 Start Date: 03/24/15 Status: Ordered One Touch Ultra Test Strips One Touch Ultra Test Strips, See Instructions, Use as directed to test blood sugar QD. Dx: 250.00, # 100 Each, 3 Refill(s), Pharmacy: [facility] # [id number], Use as directed to test blood sugar [...] Burton C5/6 and C6/7 ACDF CPT Codes: 28024; 29006; 22576; 57713; 26513 ICD-9 Codes: 723.0; 723.1; 723.4 PO03/02/2015 2auto-populated from documented surgical case 3auto-populated from documented surgical case 4Left knee [place] [address]R unicompartmental total knee medial side. 51591 Global end date 10-20-14 5LEFT 6LEFT KNEE X 2 SURG Social History Social History Type Response Smoking Status Current every day smoker; Tobacco use per day: 1 Pack Assessment and Plan Extracted from: Title: Office Visit Note Author: Sundeep Rainey MD Date: 06/11/15 Assessment/Plan Status post unicompartmental knee replacement, left Orders: traMADol, 50 mg 1 tabs, Oral, q12hr, as needed for pain, # 30 tabs, 0 Refill(s), called to pharmacy (Rx) XR Knee 1 or 2 Views Left XR Knee Standing AP Bilateral Plan is to treat him for pain and putting him on tramadol is going to give him an MRI andlaboratoryhe has a history of renalfailureto Leslie limited to 2 a day. We'll see how he responds over the next couple weeks if he continues to have pain or get worsehe is to come back and be reevaluatedand certainly if he gets any redness or swelling needs to come in and have it checked.
--- OUTSIDE RECORDS SUMMARY | 2018-03-17 10:53 | XMS REPORT | Referral Summary ---
Author Author [facility] Organization [facility] Address Unknown Phone Unavailable Care Team Providers Care Manager Multimedia Name Role Phone Danish Aguilera PCP Encounter VC Date(s): 01/05/17 - 01/05/17 [facility], [facility] [address] [place] [address] Discharge Diagnosis: Smoking Discharge Disposition: 01-Home or Self Care Attending Physician: Karine Garza APRN Vital Signs Most recent to 1 oldest [Reference Range]: Temperature Oral 36.9 degC [35.8-37.3 degC] (01/05/17 2:57 PM) Peripheral Pulse 97 bpm Rate [60-100 bpm] (01/05/17 2:57 PM) Blood Pressure 128/80 mmHg [90-140/60-90 mmHg] (01/05/17 2:57 PM) SpO2 98 % (01/05/17 2:57 PM) Problem List Condition Effective Dates Status [...] Care 5Abscess from Arm collected 11/03/15 11:18:00 AEROPHYSICIST 6Wound, Superficial from Knee L collected 08/06/14 17:01:00 AEROPHYSICIST Allergies, Adverse Reactions, Alerts Substance Reaction Severity Status Bactrim Rash Active fentaNYL1, 2 GI upset Active n/v Lipitor SORE JOINTS Active methadone Adverse Reaction Active GI upset 1ALLERGY ONLY TO FENTANYL PATCH 2fentanyl patches Medications Advair Diskus 500 mcg-50 mcg inhalation powder 1 puffs, Inhalation, BID, # 60 Each, 5 Refill(s), Pharmacy: [facility] # [id number] Start Date: 01/13/16 Status: Ordered albuterol 90 mcg/inh inhalation powder 2 puffs, Inhalation, q4hr, # 1 Each, 5 Refill(s), Pharmacy: [facility] # [id number] Start Date: 01/13/16 Status: Ordered Ambien 10 mg oral tablet 10 mg 1 tabs, Oral, Bedtime (once a day), as needed for sleep, # 30 tabs, 2 Refill(s) Start Date: 01/05/17 Stop Date: 04/05/17 Status: Ordered Chantix Starter Pack 0.5 mg-1 mg oral tablet 1 tabs, Oral, BID, as directed on package labeling, # 53 tabs, 0 Refill(s), Pharmacy: [facility] #[id number] Start Date: 01/05/17 Status: Ordered Chantix Starter Pack 0.5 mg-1 mg oral tablet 1 tabs, Oral, BID, as directed on package labeling, # 53 tabs, 0 Refill(s), Pharmacy: [facility] #[id number] Start Date: 06/13/15 Status: Ordered One Touch Delica Lancets One Touch Delica Lancets, See Instructions, Use as directed to test blood sugar QD. Dx: 250.00, # 100 Each, 0 Refill(s), Pharmacy: [facility] #[id number], Use as directed to test blood sugar QD. Dx: 250.00 Start Date: 02/17/16 Status: Ordered One Touch Ultra 2 Meter One Touch Ultra 2 Meter, See Instructions, Use as directed to test blood sugar daily. Dx: 250.00, # 1 Each, 0 Refill(s), Pharmacy: [facility] #[id number], Use as directed to test blood sugar daily. Dx: 250.00 Start Date: 03/24/15 Status: Ordered One Touch Ultra Test Strips One Touch Ultra Test Strips, See Instructions, Use as directed to test blood sugar QD. Dx: 250.00, # 100 Each, 0 Refill(s), Pharmacy: [facility] # [id number], Use as directed to test blood sugar QD. Dx: 250.00 Start Date: 02/20/16 Status: Ordered Spiriva Respimat 1.25 mcg/inh inhalation aerosol 2 puffs, Inhalation, Daily, # 1 Each, 11 Refill(s), Pharmacy: [facility] # [id number], 2 puffs Inhalation Daily Start Date: 01/13/16 Status: Ordered Results No data available for [...] Burton C5/6 and C6/7 ACDF CPT Codes: 75358; 07562; 42155; 72372; 85991 ICD-9 Codes: 723.0; 723.1; 723.4 PO03/02/2015 2auto-populated from documented surgical case 3auto-populated from documented surgical case 4Left knee [place] [address]R unicompartmental total knee medial side. 79229 Global end date 10-20-14 5LEFT 6LEFT KNEE X 2 SURG Social History Social History Type Response Smoking Status Current every day smoker; Tobacco use per day: 1 Pack Assessment and Plan No data available for this section
--- OUTSIDE RECORDS SUMMARY | 2018-03-17 10:54 | XMS REPORT | Referral Summary ---
Author Author [facility] Organization [facility] Address Unknown Phone Unavailable Care Team Providers Care Manager Interface Name Role Phone Danish Aguilera PCP Encounter [facility] [id number] Date(s): 06/03/15 - 06/03/15 [facility] [address] [address] [address] [place], [place] [address] Discharge Diagnosis: Orthopedic aftercare Discharge Disposition: [...] Care 5Abscess from Arm collected 11/03/15 11:18:00 MANAGER ASSET MANAGEMENT 6Wound, Superficial from Knee L collected 08/06/14 17:01:00 MANAGER ASSET MANAGEMENT Allergies, Adverse Reactions, Alerts Substance Reaction [...] # 53 tabs, 0 Refill(s), Pharmacy: [facility] #[id number] Start Date: 03/24/15 Status: Ordered Chantix Starter Pack 0.5 mg-1 mg oral tablet 1 tabs, Oral, BID, as directed on package labeling, # 53 tabs, 0 Refill(s), Pharmacy: [facility] #[id number] Start Date: 06/13/15 Status: Ordered DULoxetine 60 mg oral delayed release capsule See Instructions, TAKE ONE CAPSULE BY MOUTH DAILY (DO NOT CRUSH OR CHEW) due for appt,pleae call to schedule, # 30 caps, 0 Refill(s), Pharmacy: [facility] #[id number], TAKE ONE CAPSULE BY MOUTH DAILY (DO NOT CRUSH OR CHEW); due for appt,pleae... Start Date: 11/11/15 Status: Ordered lisinopril 20 mg oral tablet mg tabs, Oral, Daily, 0 Refill(s) Start Date: 05/26/15 Status: Ordered One Touch Delica Lancets One Touch Delica Lancets, See Instructions, Use as directed to test blood sugar QD. Dx: 250.00, # 100 Each, 2 Refill(s), Pharmacy: [facility] #[id number], Use as directed to test blood sugar QD. Dx: 250.00 Start Date: 03/24/15 Status: Ordered One Touch Ultra 2 Meter One Touch Ultra 2 Meter, See Instructions, Use as directed to test blood sugar daily. Dx: 250.00, # 1 Each, 0 Refill(s), Pharmacy: [facility] #[id number], Use as directed to test blood sugar daily. Dx: 250.00 Start Date: 03/24/15 Status: Ordered One Touch Ultra Test Strips One Touch Ultra Test Strips, See Instructions, Use as directed to test blood sugar QD. Dx: 250.00, # 100 Each, 3 Refill(s), Pharmacy: [facility] # [id number], Use as directed to test blood sugar [...] Burton C5/6 and C6/7 ACDF CPT Codes: 20959; 20165; 95076; 92907; 29633 ICD-9 Codes: 723.0; 723.1; 723.4 PO03/02/2015 2auto-populated from documented surgical case 3auto-populated from documented surgical case 4Left knee [place] PKR unicompartmental total knee medial side. 50126 Global end date 10-20-14 5LEFT 6LEFT KNEE X 2 SURG Social History Social History Type Response Smoking Status Current every day smoker; Tobacco use per day: 1 Pack Assessment and Plan Extracted from: Title: Office Visit Note Author: Yaw Manrique Date: 06/03/15 Assessment/Plan Orthopedic aftercare Patient overall doing very well. Radiographs look fine today without any concerning features. Denies any neck pain or radicular pain. We discussed that the numbness and tingling can take up to 2 years to completely resolve. I don't need to see him back unless things aren't going in the right direction.
--- OUTSIDE RECORDS SUMMARY | 2018-03-17 10:54 | XMS REPORT | Referral Summary ---
Author Author [facility] Organization [facility] Address Unknown Phone Unavailable Care Team Providers Care Cardiac Rehabilitation Specialist Name Role Phone Danish Aguilera PCP Encounter VC Date(s): 09/15/15 - 09/15/15 [facility] [address] [place] [address] Discharge Diagnosis: Nasal abscess Discharge Diagnosis: Tobacco abuse disorder Discharge Disposition: 01-Home or Self Care Attending Physician: Henrique David MD Admitting Physician: Henrique David MD Vital Signs Most recent to 1 2 oldest [Reference Range]: Temperature Oral 36.7 degC [35.8-37.3 degC] (09/15/15 2:52 AM) Peripheral Pulse 114 bpm 114 bpm Rate [60-100 bpm] *HI* *HI* (09/15/15 3:12 AM) (09/15/15 3:12 AM) Respiratory Rate 20 br/min 20 br/min [14-20 br/min] (09/15/15 3:12 AM) (09/15/15 3:12 AM) Blood Pressure 128/88 mmHg [90-140/60-90 mmHg] (09/15/15 3:12 AM) Systolic Blood 128 mmHg Pressure [90-140 (09/15/15 3:12 AM) mmHg] Diastolic Blood 88 mmHg Pressure [60-90 (09/15/15 3:12 AM) mmHg] SpO2 96 % 96 % (09/15/15 3:12 AM) (09/15/15 3:12 AM) Problem List Condition Effective Dates Status [...] Superficial from Knee L collected 08/06/14 17:01:00 [employer] Allergies, Adverse Reactions, Alerts Substance Reaction Severity Status fentaNYL1, 2 GI upset Active n/v Lipitor SORE JOINTS Active methadone Adverse Reaction Active GI upset 1ALLERGY ONLY TO FENTANYL PATCH 2fentanyl patches Medications Ambien 10 mg oral tablet 1 tabs, Oral, Bedtime (once a day), as needed for sleep, # 30 tabs, 5 Refill(s) Start Date: 4/20/15 Stop Date: 07/19/15 Status: Ordered Ambien 10 mg oral tablet 10 mg 1 tabs, Oral, Bedtime (once a day), as needed for sleep, # 30 tabs, 2 Refill(s), called to pharmacy (Rx) Start Date: 07/21/15 Stop Date: 10/19/15 Status: Ordered Bactrim DS 800 mg-160 mg oral tablet 2 tabs, Oral, BID, for infection, X 7 days, # 28 tabs, 0 Refill(s) Start Date: 09/15/15 Stop Date: 09/22/15 Status: Ordered Chantix Starter Pack 0.5 mg-1 mg oral tablet 1 tabs, Oral, BID, as directed on package labeling, # 53 tabs, 0 Refill(s), Pharmacy: [facility] #[id number] Start Date: 03/24/15 Status: Ordered Chantix Starter Pack 0.5 mg-1 mg oral tablet 1 tabs, Oral, BID, as directed on package labeling, # 53 tabs, 0 Refill(s), Pharmacy: [facility] #[id number] Start Date: 06/13/15 Status: Ordered Cymbalta 60 mg oral delayed release capsule See Instructions, TAKE ONE CAPSULE BY MOUTH DAILY (DO NOT CRUSH OR CHEW), # 30 caps, eRx: [facility] #[id number], TAKE ONE CAPSULE BY MOUTH DAILY (DO NOT CRUSH OR CHEW) Start Date: 09/15/15 Status: Ordered lisinopril 20 mg oral tablet mg tabs, Oral, Daily, 0 Refill(s) Start Date: 05/26/15 Status: Ordered One Touch Delica Lancets One Touch Delica Lancets, See Instructions, Use as directed to test blood sugar QD. Dx: 250.00, # 100 Each, 2 Refill(s), Pharmacy: [facility] #[id number], Use as directed to test blood sugar QD. Dx: 250.00 Start Date: 03/24/15 Status: Ordered One Touch Ultra 2 Meter One Touch Ultra 2 Meter, See Instructions, Use as directed to test blood sugar daily. Dx: 250.00, # 1 Each, 0 Refill(s), Pharmacy: [facility] #[id number], Use as directed to test blood sugar daily. Dx: 250.00 Start Date: 03/24/15 Status: Ordered One Touch Ultra Test Strips One Touch Ultra Test Strips, See Instructions, Use as directed to test blood sugar QD. Dx: 250.00, # 100 Each, 3 Refill(s), Pharmacy: [facility] # [id number], Use as directed to test blood sugar [...] Burton C5/6 and C6/7 ACDF CPT Codes: 78851; 70366; 80905; 02706; 26101 ICD-9 Codes: 723.0; 723.1; 723.4 PO03/02/2015 2auto-populated from documented surgical case 3auto-populated from documented surgical case 4Left knee [place] [employer] unicompartmental total knee medial side. [id number] Global end date 10-20-14 5LEFT 6LEFT KNEE X 2 SURG Social History Social History Type Response Smoking Status Current every day smoker; Tobacco use per day: 1 Pack Assessment and Plan No data available for this section
--- OUTSIDE RECORDS SUMMARY | 2018-03-17 10:55 | XMS REPORT | Continuity of Care Document ---
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 Document Registration [id number] 07/23/2015 13:51:11 Document Registration [id number] 07/23/2015 13:43:28 Document Registration [id number] 07/23/2015 13:36:13 Document Registration [id number] 07/23/2015 12:44:09 Document Registration [id number] 07/23/2015 12:01:11 Document Registration [id number] 07/23/2015 11:48:00 Document Registration [id number] 07/23/2015 11:41:43 Document Registration [id number] 07/23/2015 11:33:44 Document Registration [id number] 07/23/2015 11:27:51 Document Registration [id number] 07/23/2015 11:09:46 Document Registration [id number] 07/23/2015 10:55:43 Document Registration [id number] 07/23/2015 10:50:03 Document Registration [id number] 07/23/2015 10:32:14 Document Registration [id number] 07/23/2015 10:26:58 Document Registration [id number] 07/23/2015 10:21:49 Document Registration [id number] 07/23/2015 10:10:56 Document Registration [id number] 07/23/2015 10:03:32 Document Registration [id number] 07/23/2015 09:48:55 Document Registration [id number] 07/23/2015 09:37:37 Document Registration [id number] 07/23/2015 09:32:22 Document Registration [id number] 07/23/2015 09:27:35 Document Registration [id number] 07/23/2015 09:19:36 Document Registration [id number] 07/23/2015 09:14:28 Document Registration [id number] 12/04/2014 06:25:00 Document Registration [id number] 11/27/2014 12:56:00 Document Registration [id number] 10/30/2014 11:30:00 Document Registration [id number] 10/30/2014 11:13:00 Document Registration [id number] 10/30/2014 11:11:00 Document Registration [id number] 08/03/2017 10:29:00 08/03/2017 23:59:59 CLS Outpatient KINGSLEY EID MD [id number] 04/07/2017 15:33:00 04/07/2017 23:59:00 DIS Outpatient Danish Aguilera [address] [place] [id number] FM MAN BOIL [id number] 04/01/2017 13:06:00 04/01/2017 23:59:00 DIS Outpatient Danish Aguilera [id number] FM CHECK BOIL [id number] 01/05/2017 14:44:00 01/05/2017 23:59:00 DIS Outpatient Karine Garza [id number] FM PHYSICAL [id number] 04/02/2016 11:01:00 04/02/2016 23:59:00 DIS Outpatient Danish Aguilera [facility] E21 FM poss skin tags [id number] 01/13/2016 11:35:00 01/13/2016 23:59:00 DIS Outpatient Danish Aguilera [facility] E21 FM MAN BREATHING AND NUMBNESS CONCERN ABOUT NODULES [id number] 11/20/2015 14:07:00 11/20/2015 23:59:00 DIS Outpatient Danish Aguilera [facility] E21 FM POSS MRSA [id number] 11/03/2015 08:35:00 11/03/2015 23:59:59 CLS Outpatient Stuart Angel [facility] Mur IC ACC POSSIBLE SPIDER BITE [id number] 09/18/2015 10:32:00 09/18/2015 23:59:59 CLS Outpatient Danish Aguilera [facility] E21 FM RASH FU ER [id number] 07/23/2015 09:36:00 07/23/2015 23:59:00 DIS Outpatient George Christy [facility] CP Opt glasses eyemed physio poly marcolin ree [address] [id number] 07/22/2015 13:01:00 07/22/2015 23:59:59 CLS Outpatient George Christy [facility] CP Opt NPT REF DM [id number] 06/13/2015 11:09:00 06/13/2015 23:59:00 DIS Outpatient Danish Aguilera [facility] E21 FM REVIEW LAB RESULTS [id number] 06/11/2015 15:26:00 06/11/2015 23:59:00 DIS Outpatient Sundeep Rainey [facility] FC Ortho RCK LT KNEE PAIN/SWELLING [id number] 06/03/2015 13:43:00 06/03/2015 23:59:00 DIS Outpatient Yaw Manrique [facility] FC Ortho RCK NECK [id number] 05/26/2015 06:45:00 05/26/2015 08:46:00 DIS Outpatient Edilberto Miranda [facility] ASC Surgery COLONOSCOPY [id number] 03/24/2015 13:06:00 03/24/2015 23:59:00 DIS Outpatient Danish Aguilera [facility] E21 FM PHYSICAL [id number] 12/19/2014 10:45:00 12/19/2014 23:59:00 DIS Outpatient Yaw Manrique [facility] FC Ortho PO [id number] 11/12/2014 08:24:00 11/12/2014 23:59:00 DIS Outpatient Yaw Manrique [facility] FC Ortho X1, Rck neck [id number] 11/04/2014 19:53:00 11/04/2014 23:59:00 DIS Outpatient Mahdi Demi M [facility] Mur IC vertigo all the time [id number] 10/08/2014 13:07:00 10/08/2014 23:59:00 DIS Outpatient Caridad Cori S [facility] Kevin FM cat bit thumb last week/swollen and hard [id number] 09/30/2014 15:09:00 09/30/2014 23:59:00 DIS Outpatient Alton Monroy [facility] FC PainMgt RT UPPER EXTREMITY EMG/NCT ( STALL REF), DM/NRN/NPN [id number] 09/17/2014 14:57:00 09/17/2014 23:59:00 DIS Outpatient Sundeep Rainey [facility] FC Ortho RCK LT KNEE [id number] 09/05/2014 14:25:00 09/05/2014 23:59:59 CLS Outpatient Richard Lucero [facility] Kevin FM FLU SHOT [id number] 09/04/2014 12:58:00 09/04/2014 23:59:00 DIS Outpatient Renny Mckenzie S [facility] FC PainMgt RCK LBP - CERVICALGIA/ALLYSON - NPT 11/16/FILMS IN SYS/YAMILKA [id number] 09/03/2014 15:19:00 09/03/2014 23:59:00 DIS Outpatient Sundeep Rainey [facility] FC Ortho RCK LT KNEE [id number] 02/27/2015 12:59:00 Document Registration [id number] 01/21/2015 14:33:00 Document Registration [id number] 01/20/2015 08:06:00 Document Registration [id number] 10/30/2014 11:35:00 Document Registration [id number] 10/30/2014 11:33:00 Document Registration [id number] 10/30/2014 11:32:00 Document Registration [id number] 10/30/2014 11:25:00 Document Registration [id number] 10/30/2014 11:23:00 Document Registration [id number] 10/30/2014 11:16:00 Document Registration [id number] 10/30/2014 11:09:00 Document Registration [id number] 10/30/2014 11:00:00 Document Registration [id number] 10/30/2014 10:55:00 Document Registration [id number] 10/30/2014 10:42:00 Document Registration [id number] 10/30/2014 10:39:00 Document Registration [id number] 12/25/2013 14:03:00 12/25/2013 23:59:59 CLS Outpatient [id number] 12/19/2013 14:09:00 12/19/2013 23:59:59 CLS Outpatient [id number] 12/12/2013 12:47:00 12/12/2013 23:59:59 CLS Outpatient [id number] 12/03/2013 16:15:00 12/03/2013 23:59:59 CLS Outpatient [id number] 11/30/2013 08:49:00 11/30/2013 23:59:59 CLS Outpatient [id number] 11/29/2013 10:46:00 11/29/2013 23:59:59 CLS Outpatient [id number] 11/26/2013 09:03:00 11/26/2013 23:59:59 CLS Outpatient [id number] 11/21/2013 09:20:00 11/21/2013 23:59:59 CLS Outpatient [id number] 11/09/2013 09:06:00 11/09/2013 23:59:59 CLS Outpatient [id number] 11/08/2013 12:56:00 11/08/2013 23:59:59 CLS Outpatient [id number] 11/08/2013 09:01:00 11/08/2013 23:59:59 CLS Outpatient [id number] 10/26/2013 08:58:00 10/26/2013 23:59:59 CLS Outpatient [id number] 10/11/2013 08:30:00 10/11/2013 23:59:59 CLS Outpatient [id number] 07/31/2013 13:45:00 07/31/2013 23:59:59 CLS Outpatient [id number] 12/29/2013 12:00:00 12/31/2013 16:37:00 DIS [facility] [id number] 03/12/2013 21:10:00 03/12/2013 23:06:00 DIS Emergency Neymar David MD [facility] on [facility] [id number] 02/07/2013 08:40:00 02/07/2013 15:30:00 DIS Outpatient Sharon GREENE, [facility] on [facility] [id number] 12/06/2012 19:04:00 12/06/2012 22:20:00 DIS Emergency Pranav Marcelo MD [facility] on [facility] [id number] 06/15/2012 15:37:00 06/15/2012 19:00:00 DIS Emergency Mendoza Castano MD [facility] on [facility] [id number] 05/04/2012 21:35:00 05/05/2012 00:22:00 DIS Emergency Neymar David MD [facility] [address] [place]
[2018-03-17] MEDS ORDERED: NS IV 1000 ML 1,000 ML IV SCH (11:15)
--- NOTE | 2018-03-17 11:19 | ED General ---
General Chief Complaint: General Problems/Pain Stated Complaint: BODY CRAMPS Nursing Triage Note: PT TO ROOM 3 PT CO OF CRAMPING ALL OVER BODY, INTERMITTENTLY FOR ABOUT 2 WEEKS, PT STATES LAST TIME THIS HAPPENED HE WAS IN RENAL FAILURE. RATES CRAMPING 05/12 Nursing Sepsis Screen: No Definite Risk Source of Information: Patient Exam Limitations: No Limitations History of Present Illness Date Seen by Provider: Mar 17, 2018 Time Seen by Provider: 11:17 Initial Comments To ER with a two-week history of diffuse body cramping. Mostly is in the right low back but it also affects his arms and legs and sometimes his abdomen. He denies fevers chills nausea or vomiting. He states he had an episode similar to this about 4 years ago and was diagnosed with renal failure. He was living in [place] at the time, he just moved here to [place] and does not have a regular physician. Timing/Duration: 1-2 Days, Other Severity: Moderate Allergies and Home Medications Allergies Coded Allergies: No Known Drug Allergies (Unverified , 03/17/18) Home Medications No Active Prescriptions or Reported Meds Patient Home Medication List Home Medication List Reviewed: Yes Review of Systems Constitutional: see HPI EENTM: see HPI Respiratory: no symptoms reported Cardiovascular: no symptoms reported Genitourinary: no symptoms reported Musculoskeletal: see HPI, muscle pain Skin: no symptoms reported Psychiatric/Neurological: No Symptoms Reported Hematologic/Lymphatic: No Symptoms Reported Immunological/Allergic: no symptoms reported Past Zoikeqn-Zjqqhi-Nzobvz Hx Patient Social History Alcohol Use: Occasionally Uses Recreational Drug Use: Yes (POT) Smoking Status: Current Everyday Smoker Type Used: Cigarettes Recent Foreign Travel: No Contact w/Someone Who Travel: No Recent Infectious Disease Expo: No Recent Hopitalizations: No Physical Abuse: No Sexual Abuse: No Seasonal Allergies Seasonal Allergies: No Past Medical History Orthopedic Genitourinary: Yes Renal Failure Nursing Suicide Risk Score: 0 Physical Exam Vital Signs Vital Signs - First Documented 03/17/18 11:00 Temp 97.5 Pulse 99 Resp 18 B/P (MAP) 149/88 (108) Pulse Ox 96 Capillary Refill : Less Than 3 Seconds General Appearance: No Apparent Distress, WD/WN Eyes: Bilateral Eye Normal Inspection, Bilateral Eye PERRL, Bilateral Eye EOMI HEENT: PERRL/EOMI, TMs Normal Neck: Full Range of Motion, Normal Inspection Respiratory: Normal Breath Sounds, No Accessory Muscle Use, No Respiratory Distress Cardiovascular: Regular Rate, Rhythm, Normal Peripheral Pulses Gastrointestinal: Non Tender, Soft Extremity: Normal Capillary Refill, Non Tender, No Calf Tenderness Neurologic/Psychiatric: Alert, Oriented x3, No Motor/Sensory Deficits Skin: Normal Color, Warm/Dry Progress/Results/Core Measures Suspected Sepsis Recent Fever Within 48 Hours: No Infection Criteria Present: None New/Unexplained Altered Menta: No Sepsis Screen: No Definite Risk SIRS Temperature:97.5 Pulse: 99 Respiratory Rate: 18 Laboratory Tests 03/17/18 11:05: White Blood Count 6.4 Blood Pressure 149 /88 Mean: 108 Laboratory Tests 03/17/18 11:05: Creatinine 0.93, Platelet Count 207, Total Bilirubin 0.4 Results/Orders Lab Results Laboratory Tests Test 03/17/18 11:05 03/17/18 12:45 Range/Units White Blood Count 6.4 4.3-11.0 10^3/uL Red Blood Count 4.87 4.35-5.85 10^6/uL Hemoglobin 15.8 13.3-17.7 G/DL Hematocrit 46 40-54 % Mean Corpuscular Volume 94 80-99 FL Mean Corpuscular Hemoglobin 32 25-34 PG Mean Corpuscular Hemoglobin Concent 35 32-36 G/DL Red Cell Distribution Width 13.2 10.0-14.5 % Platelet Count 207 130-400 10^3/uL Mean Platelet Volume 11.1 H 7.4-10.4 FL Neutrophils (%) (Auto) 63 42-75 % Lymphocytes (%) (Auto) 24 12-44 % Monocytes (%) (Auto) 11 0-12 % Eosinophils (%) (Auto) 2 0-10 % Basophils (%) (Auto) 1 0-10 % Neutrophils # (Auto) 4.1 1.8-7.8 X 10^3 Lymphocytes # (Auto) 1.5 1.0-4.0 X 10^3 Monocytes # (Auto) 0.7 0.0-1.0 X 10^3 Eosinophils # (Auto) 0.1 0.0-0.3 10^3/uL Basophils # (Auto) 0.0 0.0-0.1 10^3/uL Sodium Level 138 135-145 MMOL/L Potassium Level 3.8 3.6-5.0 MMOL/L Chloride Level 106 98-107 MMOL/L Carbon Dioxide Level 23 21-32 MMOL/L Anion Gap 9 5-14 MMOL/L Blood Urea Nitrogen 6 L 7-18 MG/DL Creatinine 0.93 0.60-1.30 MG/DL Estimat Glomerular Filtration Rate > 60 BUN/Creatinine Ratio 6 Glucose Level 110 H 70-105 MG/DL Calcium Level 9.4 8.5-10.1 MG/DL Magnesium Level 2.4 1.8-2.4 MG/DL Total Bilirubin 0.4 0.1-1.0 MG/DL Aspartate Amino Transf (AST/SGOT) 24 5-34 U/L Alanine Aminotransferase (ALT/SGPT) 29 0-55 U/L Alkaline Phosphatase 81 40-136 U/L Total Protein 7.8 6.4-8.2 GM/DL Albumin 4.3 3.2-4.5 GM/DL Thyroid Stimulating Hormone (TSH) 1.38 0.35-4.94 UIU/ML Urine Color YELLOW Urine Clarity CLEAR Urine pH 7 5-9 Urine Specific [place] 1.005 L 1.016-1.022 Urine Protein NEGATIVE NEGATIVE Urine Glucose (UA) NEGATIVE NEGATIVE Urine Ketones NEGATIVE NEGATIVE Urine Nitrite NEGATIVE NEGATIVE Urine Bilirubin NEGATIVE NEGATIVE Urine Urobilinogen NORMAL NORMAL MG/DL Urine Leukocyte Esterase NEGATIVE NEGATIVE Urine RBC (Auto) NEGATIVE NEGATIVE Urine RBC NONE /HPF Urine WBC NONE /HPF Urine Squamous Epithelial Cells NONE /HPF Urine Crystals NONE /LPF Urine Bacteria NEGATIVE /HPF Urine Casts NONE /LPF Urine Mucus NEGATIVE /LPF Urine Culture Indicated NO Urine Opiates Screen NEGATIVE NEGATIVE Urine Oxycodone Screen NEGATIVE NEGATIVE Urine Methadone Screen NEGATIVE NEGATIVE Urine Propoxyphene Screen NEGATIVE NEGATIVE Urine Barbiturates Screen NEGATIVE NEGATIVE Ur Tricyclic Antidepressants Screen NEGATIVE NEGATIVE Urine Phencyclidine Screen NEGATIVE NEGATIVE Urine Amphetamines Screen NEGATIVE NEGATIVE Urine Methamphetamines Screen NEGATIVE NEGATIVE Urine Benzodiazepines Screen NEGATIVE NEGATIVE Urine Cocaine Screen NEGATIVE NEGATIVE Urine Cannabinoids Screen POSITIVE H NEGATIVE My Orders Orders - NADIA SHEA APRN Cbc With Automated Diff (03/17/18 11:13) Comprehensive Metabolic Panel (03/17/18 11:13) Iv [place]-Insert (Order) (03/17/18 11:13) Magnesium (03/17/18 11:13) Thyroid Stimulating Hormone (03/17/18 11:13) Ua Culture If Indicated (03/17/18 11:13) Drug Screen Stat (Urine) (03/17/18 11:13) Ns Iv 1000 Ml (Sodium Chloride 0.9%) (03/17/18 11:15) Vital Signs/I&O 03/17/18 11:00 Temp 97.5 Pulse 99 Resp 18 B/P (MAP) 149/88 (108) Pulse Ox 96 Capillary Refill : Less Than 3 Seconds Blood Pressure Mean: 108 Departure Impression Primary Impression: Muscle cramp Disposition: 01 HOME, SELF-CARE Condition: Stable Departure-Patient Inst. Decision time for Depature: 11:45 Referrals: NO,LOCAL PHYSICIAN (PCP/Family) Primary Care Physician Patient Instructions: Muscle Spasms (DC) Add. Discharge Instructions: 1. Return to ER for any concerns 2. Establish care with a primary care provider for further evaluation. All discharge instructions reviewed with patient and/or family. Voiced understanding. Scripts No Active Prescriptions or Reported Meds Work/School Note: Local Medical Staff Listing NADIA SHEA APRN Mar 17, 2018 11:19
[2018-03-17 11:23] LABS: BASOPHILS % (AUTO) 1 % (0-10); EOSINOPHILS # (AUTO) 0.1 10^3/uL (0.0-0.3); EOSINOPHILS % (AUTO) 2 % (0-10); HEMATOCRIT 46 % (40-54); HEMOGLOBIN 15.8 G/DL (13.3-17.7); LYMPHOCYTES # (AUTO) 1.5 X 10^3 (1.0-4.0); LYMPHOCYTES % (AUTO) 24 % (12-44); MEAN CORPUSCULAR HEMOGLOBIN 32 PG (25-34); MEAN CORPUSCULAR HGB CONC 35 G/DL (32-36); MEAN CORPUSCULAR VOLUME 94 FL (80-99); MEAN PLATELET VOLUME 11.1 FL (7.4-10.4); MONOCYTES # (AUTO) 0.7 X 10^3 (0.0-1.0); MONOCYTES % (AUTO) 11 % (0-12); NEUTROPHILS # (AUTO) 4.1 X 10^3 (1.8-7.8); NEUTROPHILS % (AUTO) 63 % (42-75); PLATELET COUNT 207 10^3/uL (130-400); RED BLOOD COUNT 4.87 10^6/uL (4.35-5.85); RED CELL DISTRIBUTION WIDTH 13.2 % (10.0-14.5); WHITE BLOOD COUNT 6.4 10^3/uL (4.3-11.0)
[2018-03-17 11:42] LABS: ALANINE AMINOTRANSFERASE 29 U/L (0-55); ALBUMIN 4.3 GM/DL (3.2-4.5); ALKALINE PHOSPHATASE 81 U/L (40-136); BILIRUBIN,TOTAL 0.4 MG/DL (0.1-1.0); BUN/CREATININE RATIO 6; CALCIUM 9.4 MG/DL (8.5-10.1); CARBON DIOXIDE 23 MMOL/L (21-32); CHLORIDE 106 MMOL/L (98-107); CREATININE SERUM 0.93 MG/DL (0.60-1.30); GFR ESTIMATED > 60; GLUCOSE 110 MG/DL (70-105); MAGNESIUM 2.4 MG/DL (1.8-2.4); POTASSIUM 3.8 MMOL/L (3.6-5.0); SODIUM 138 MMOL/L (135-145); TOTAL PROTEIN 7.8 GM/DL (6.4-8.2)
[2018-03-17 13:01] LABS: BILIRUBIN,URINE NEGATIVE (NEGATIVE); CLARITY,URINE CLEAR; COLOR,URINE YELLOW; GLUCOSE, URINE (UA) NEGATIVE (NEGATIVE); KETONES,URINE NEGATIVE (NEGATIVE); LEUKOCYTE ESTERASE ,URINE NEGATIVE (NEGATIVE); NITRITE,URINE NEGATIVE (NEGATIVE); PH,URINE 7 (5-9); PROTEIN,URINE NEGATIVE (NEGATIVE); UROBILINOGEN,URINE NORMAL (NORMAL)
[2018-03-17 13:11] LABS: AMPHETAMINE SCREEN, URINE NEGATIVE (NEGATIVE); BACTERIA,URINE NEGATIVE /HPF; BARBITURATE SCREEN URINE NEGATIVE (NEGATIVE); BENZODIAZEPINES SCREEN URINE NEGATIVE (NEGATIVE); CANNABINOID SCREEN, URINE POSITIVE (NEGATIVE); COCAINE SCREEN URINE NEGATIVE (NEGATIVE); METHADONE STAT NEGATIVE (NEGATIVE); METHAMPHETAMINE SCREEN URINE S NEGATIVE (NEGATIVE); OPIATE SCREEN URINE NEGATIVE (NEGATIVE); OXYCODONE STAT NEGATIVE (NEGATIVE); PROPOXYPHENE STAT NEGATIVE (NEGATIVE); TRICYCLIC ANTIDEPRESSANTS SCRE NEGATIVE (NEGATIVE)
[2018-03-17 13:59] VITALS: BP 149/88
== END 2018-03-17 13:59 | disposition home or self-care (01) ==
LOC: ER 10:44
DX: R25.2 Cramp and spasm (principal); F12.10 Cannabis abuse, uncomplicated; F17.210 Nicotine dependence, cigarettes, uncomplicated
CPT/HCPCS: 36415; 80053; 80306; 81000; 83735; 84443; 85025; 96360; 99282